=== PATIENT | male | born 1945 | race Caucasian/White ===

== ENCOUNTER 2022-07-29 12:31 | Outpatient (CLI) | payer MEDICARE, SELFPAY ==
--- OUTSIDE RECORDS SUMMARY | 2022-07-29 12:34 | XMS_ITS | Continuity of Care Document ---
:1945 Author Organization [facility] Address [address] [place] [address] Care Team Providers Name Role Phone Arun Justin Primary Care Physician Encounter [facility] Date(s): 06/06/22 - 06/06/22 [facility] [address] [place] [address] Encounter Diagnosis Lung mass (Discharge Diagnosis) - 06/06/22 Pneumonia (Discharge Diagnosis) - 06/06/22 Discharge Disposition: Home or Self Care Attending Physician: Ryley Mckeon MD Admitting Physician: Ryley Mckeon MD Allergies, Adverse Reactions, Alerts Substance Reaction Severity Status ANIMAL DANDER1 Unknown Active HOUSE DUST Unknown Active metFORMIN Abdominal pain Unknown Active 1Cats Assessment and Plan Future Appointments Functional Status 06/06/22 Other exposure to Infectious Disease None Immunizations Given and Recorded Vaccine Date Status Refusal Reason influenza virus vaccine, inactivated1 05/14/22 Recorded influenza virus vaccine, inactivated 05/28/17 Recorded influenza virus vaccine, inactivated 06/06/15 Recorded influenza virus vaccine, inactivated 05/11/13 Recorded influenza virus vaccine, inactivated 05/21/12 Recorded influenza virus vaccine, inactivated 04/29/11 Recorded influenza virus vaccine, inactivated 05/23/10 Recorded influenza virus vaccine, inactivated 08/02/09 Recorded influenza virus vaccine, inactivated 06/23/08 Recorded influenza virus vaccine, inactivated 06/17/07 Recorded influenza virus vaccine, inactivated 06/04/06 Recorded SARS-CoV-2 (COVID-19) mRNA-1273 vaccine 06/11/21 Recorded SARS-CoV-2 (COVID-19) mRNA-1273 vaccine 11/09/20 Recorded SARS-CoV-2 (COVID-19) mRNA-1273 vaccine 10/13/20 Recorded influenza, unspecified formulation 05/15/21 Recorded influenza, unspecified formulation 04/26/20 Recorded influenza, unspecified formulation 04/30/19 Recorded influenza, unspecified formulation 05/31/18 Recorded influenza, unspecified formulation 05/15/16 Recorded zoster vaccine, inactivated 07/26/20 Recorded zoster vaccine, inactivated 04/26/20 Recorded pneumococcal 23-polyvalent vaccine 12/23/16 Recorded pneumococcal 23-polyvalent vaccine 09/01/06 Recorded tetanus/diphth/pertuss (Tdap) adult/adol 12/23/16 Recorde d tetanus/diphth/pertuss (Tdap) adult/adol 09/01/06 Recorde d pneumococcal 13-valent conjugate vaccine 06/25/15 Recorde d Novel [id number], all formulation 08/22/09 Recorde d zoster vaccine live 01/18/08 Recorded tetanus-diphth toxoids (Td) adult/adol 08/17/96 Recorded 1Result Comment: [facility] Medications !-Levaquin 500 mg oral tablet 500 mg = 1 tab, Oral, every 24 hr, # 7 tab, 0 Refill(s), Pharmacy: [id number], 170.81, cm, 06/06/22 14:45:00 EDT, Height/Length Dosing, 84.37, kg, 06/06/22 14:45:00 EDT, Weight Dosing Start Date: 06/06/22 Stop Date: 06/13/22 Status: Orderedazithromycin 250 mg oral tablet See Instructions, take 2 tabs on day 1 and 1 tabs on day 2-5, # 1 EA, 0 Refill(s), [facility]acy: [id number] Start Date: 05/20/22 Status: Orderedbenazepril 10 mg oral tablet 1 tab, OG Tube, Daily, 0 Refill(s) Start Date: 01/21/22 Status: Orderedblood glucose monitor Supply, See instructions, # 1 EA, 0 Refill(s) Start Date: 01/21/22 Status: OrderedDelica Lancets Start Date: 01/21/22 Status: Orderedfluticasone-vilanterol 100 mcg-25 mcg/inh inhalation powder 1 puffs, Inhale, Daily, 0 Refill(s) Start Date: 01/21/22 Status: OrderedglipiZIDE 5 mg oral tablet See Instructions, Take 2 tablets by mouth once daily, # 180 tab, 3 Refill(s), Pharmacy: [id number] Start Date: 02/18/22 Status: Orderedmetoprolol succinate 50 mg oral tablet, extended release 1 tab, Oral, Daily, 0 Refill(s) Start Date: 01/21/22 Status: OrderedOne Touch Ultra Test Strips Supply, See instructions, # 1 EA, 0 Refill(s) Start Date: 01/21/22 Status: OrderedRybelsus 3 mg oral tablet 3 mg = 1 tab, Oral, Daily, take at least 30 minutes before first food, beverage, or other oral meds,# 30 tab, 0 Refill(s), Pharmacy: [id number] Start Date: 01/21/22 Status: Orderedsimvastatin 40 mg oral tablet 1 tab, Oral, Daily, 0 Refill(s) Start Date: 01/21/22 Status: OrderedSingulair 10 mg oral tablet 10 mg = 1 tab, Oral, Daily, # 30 tab, 0 Refill(s), Pharmacy: [facility] Start Date: 05/20/22 Status: Ordered Problem List Condition Confirmation Course Effective Dates Status Health I nformant Status Active immunization Confirmed Active Adult health Confirmed Active examination Allergic rhinitis Confirmed Active Backache Confirmed Active Benign prostatic Confirmed Active hyperplasia Chronic cholecystitis Confirmed Active Chronic obstructive Confirmed Active lung disease Impotence Confirmed Active Essential hypertension Confirmed 09/23/18 Active Gastric ulcer Confirmed Active Gastroesophageal Confirmed Active reflux disease 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 Hyperlipidemia Confirmed Active Insomnia Confirmed Active Lower urinary tract Confirmed Active symptoms 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 Active asthma Obesity Confirmed Active Prostate nodule Confirmed Active Retention of urine Confirmed Active Type 2 diabetes Confirmed Active mellitus without complication Type II diabetes Confirmed Active mellitus uncontrolled Urinary tract Confirmed Active obstruction Procedures Procedure Date Related Diagnosis Body Site Status Cholecystectomy1 10/25/12 Completed Colonoscopy 09/05/12 Completed Prostate bio[sy, any mthd 01/30/09 Co mpleted Prostatectomy 01/30/09 Completed Cardiac catheterization 05/07/06 Comp leted Biopsy of prostate 07/02/05 Completed Hernia repair 08/16/88 Completed Extraction of cataract (procedure) Completed 1Laparoscopic Cholecystectomy Results Laboratory List Name Date Hemoglobin A1c 06/06/22 Urinalysis Microscopic 06/06/22 Urinalysis with Micro if Indicated and Culture if Shelley cated 06/06/22 CBC w/ Diff 06/06/22 Comprehensive Metabolic Panel 06/06/22 D-Dimer 06/06/22 NT- Pro BNP 06/06/22 Troponin-I 06/06/22 SARS-CoV-2 (COVID-19)/Flu/RSV (GeneXpert) 06/06/22 Automated Diff 06/06/22 Most recent to oldest [Reference Range]: 1 WBC [5.0-10.0 x10^3/mcL] 13.6 x10^3/mcL *HI* (06/06/22 3:24 PM) RBC [4.6-6.0 x10^6/mcL] 4.2 x10^6/mcL *LOW* (06/06/22 3:24 PM) Neutro Auto [40.0-75.0 %] 79.8 % *HI* (06/06/22 3:24 PM) Lymph Auto [20.0-50.0 %] 10.3 % *LOW* (06/06/22 3:24 PM) [place] Auto [2.0-15.0 %] 8.8 % (06/06/22 3:24 PM) Basophil Auto [0.0-1.0 %] 0.3 % (06/06/22 3:24 PM) BUN [7-18 mg/dL] 19 mg/dL *HI* (06/06/22 3:24 PM) UA Color Yellow (06/06/22 3:43 PM) UA WBC [0-3] 0-3 (06/06/22 3:43 PM) Glucose Level [74-106 mg/dL] 117 mg/dL *HI* (06/06/22 3:24 PM) Potassium Level [3.5-5.1 mmol/L] 4.4 mmol/L (06/06/22 3:24 PM) MCV [80.0-103.0 fL] 90.4 fL (06/06/22 3:24 PM) UA Urobilinogen Normal (06/06/22 3:43 PM) UA Hyal Cast Rare /HPF (06/06/22 3:43 PM) UA Bili [Negative] Negative (06/06/22 3:43 PM) UA Ketones Negative (06/06/22 3:43 PM) AST [15-37 unit/L] 12 unit/L *LOW* (06/06/22 3:24 PM) ALT [14-59 unit/L] 20 unit/L (06/06/22 3:24 PM) MCHC [31.0-35.0 g/dL] 33.1 g/dL (06/06/22 3:24 PM) Troponin-I [0.0-76.2 pg/mL] 6.0 pg/mL (06/06/22 3:24 PM) Sodium Level [136-145 mmol/L] 134 mmol/L *LOW* (06/06/22 3:24 PM) UA RBC [0-2] 0-2 (06/06/22 3:43 PM) UA Leuk Est Negative (06/06/22 3:43 PM) UA Nitrite Negative (06/06/22 3:43 PM) UA Glucose [Negative] Negative (06/06/22 3:43 PM) Hct [41.0-51.0 %] 37.8 % *LOW* (06/06/22 3:24 PM) UA Bacteria Rare /HPF (06/06/22 3:43 PM) Calcium Level [8.5-10.1 mg/dL] 8.9 mg/dL (06/06/22 3:24 PM) Albumin Level [3.4-5.0 g/dL] 2.9 g/dL *LOW* (06/06/22 3:24 PM) Protein Total [6.4-8.2 g/dL] 7.3 g/dL (06/06/22 3:24 PM) UA Protein Trace *ABN* (06/06/22 3:43 PM) MCH [26.0-32.0 pg] 29.9 pg (06/06/22 3:24 PM) Neutro Absolute 10.8 x10^3/mcL *NA* (06/06/22 3:24 PM) Bilirubin Total [0.2-1.0 mg/dL] 0.5 mg/dL (06/06/22 3:24 PM) Hgb [14.0-18.0 g/dL] 12.5 g/dL *LOW* (06/06/22 3:24 PM) Alk Phos [46-146 unit/L] 60 unit/L (06/06/22 3:24 PM) UA Blood Negative (06/06/22 3:43 PM) UA Mucous Few /HPF *ABN* (06/06/22 3:43 PM) UA Spec Grav 1.025 *NA* (06/06/22 3:43 PM) Platelets [130-450 x10^3/mcL] 213 x10^3/mcL (06/06/22 3:24 PM) CO2 [21-32 mmol/L] 27 mmol/L (06/06/22 3:24 PM) UA Squam Epithelial [None Seen] Rare (06/06/22 3:43 PM) UA pH 6.0 *NA* (06/06/22 3:43 PM) eGFR Non-AA [>=60] 40 *LOW* (06/06/22 3:24 PM) eGFR AA [>=60] 40 *LOW* (06/06/22 3:24 PM) UA Appear Clear (06/06/22 3:43 PM) Hemoglobin A1c [4.0-6.0 %] 6.7 % *HI* (06/06/22 3:43 PM) NT-proBNP [0-450 pg/mL] 274 pg/mL (06/06/22 3:24 PM) Chloride Level [98-107 mmol/L] 100 mmol/L (06/06/22 3:24 PM) RDW-CV [11.5-17.0 %] 12.6 % (06/06/22 3:24 PM) Imm Gran Auto [0.0-0.9 %] 0.4 % (06/06/22 3:24 PM) UA Culture Ind?. Not Indicated 1 (06/06/22 3:43 PM) Creatinine Level [0.70-1.30 mg/dL] 1.73 mg/dL *HI* (06/06/22 3:24 PM) Employed in healthcare? Unknown *NA* (06/06/22 3:20 PM) Symptomatic as defined by CDC? Unknown *NA* (06/06/22 3:20 PM) Hospitalized due to COVID-19? Unknown *NA* (06/06/22 3:20 PM) In ICU? Unknown *NA* (06/06/22 3:20 PM) Group care resident? Unknown *NA* (06/06/22 3:20 PM) status? Unknown *NA* (06/06/22 3:20 PM) SARS-CoV-2(Covid19)PCR(GXpert COVFLURSV) [Negative] Ne gative (06/06/22 3:20 PM) Flu A (GXpert COVFLURSV) [Negative] Negative (06/06/22 3:20 PM) RSV (GXpert COVFLURSV) [Negative] Negative (06/06/22 3:20 PM) Flu B (GXpert COVFLURSV) [Negative] Negative (06/06/22 3:20 PM) D Dimer, (Quant.) [0.00-0.50 mg/L] 0.90 mg/L *HI* (06/06/22 3:24 PM) Eos, Auto [1.0-6.0 %] 0.4 % *LOW* (06/06/22 3:24 PM) 1Result Comment: Urine Culture not Needed Vital Signs Most recent to oldest 1 2 3 [Reference Range]: Temperature Temporal Artery 36.0 Deg C [36-38 Deg C] (06/06/22 2:39 PM) Temperature Temporal Artery 96.8 Deg F (DegF) [97.3-100 Deg F] *LOW* (06/06/22 2:39 PM) Peripheral Pulse Rate 85 bpm 84 bpm 84 bpm [60-100 bpm] (06/06/22 3:44 PM) (06/06/22 3:20 PM) (06/06/22 3:13 PM) Heart Rate Monitored [60-100 86 bpm 87 bpm 82 bpm bpm] (06/06/22 5:06 PM) (06/06/22 3:44 PM) (06/06/22 3:20 PM) Respiratory Rate [12-24 22 br/min 20 br/min 13 br/mi n br/min] (06/06/22 3:44 PM) (06/06/22 3:20 PM) (06/06/22 3:13 PM) Blood Pressure [90-140/60-90 131/73 mmHg 120/71 mmHg 115 /65 mmHg mmHg] (06/06/22 3:44 PM) (06/06/22 3:20 PM) (06/06/22 2:39 PM) Weight 84.37 kg (06/06/22 2:39 PM) Weight Dosing 84.37 kg (06/06/22 2:45 PM) Height 170.810 cm (06/06/22 2:39 PM) Height/Length Dosing 170.810 cm (06/06/22 2:45 PM) Social History Social History Type Response Smoking Status Smoking tobacco use: Former tobacco user; Never; Number used per day: 1-2 PPD; Number of years: 30; 1 entered on: 01/15/22 Sex Male 1Quit 1993 Hospital Discharge Instructions Patient Qfvlkrzdz17/21/2022 16:32:12Community-Acquired Pneumonia, Adult, Hiuj-pb-NtymKhedmqfqe-Acquired Pneumonia, Adult Pneumonia is an infection of the lungs. It causes irritation and swelling in the airways of the lungs. Mucus and fluid may also build up inside the airways. This may cause coughing and trouble breathing. One type of pneumonia can happen while you are in a hospital. A different type can happen when you are not in a hospital (community-acquired pneumonia). What are the causes? This condition is caused by germs (viruses, bacteria, or fungi). Some types of germs can spread fromperson to person. Pneumonia is not thought to spread from person to person. What increases the risk? You are more likely to develop this condition if: ??? You have a long-term (chronic) disease, such as: ??? Disease of the lungs. This may be chronic obstructive pulmonary disease (COPD) or asthma. ??? Heart failure. ??? Cystic fibrosis. ??? Diabetes. ??? Kidney disease. ??? Sickle cell disease. ??? HIV. ??? You have other health problems, such as: ??? Your body's defense system (immune system) is weak. ??? A condition that may cause you to breathe in fluids from your mouth and nose. ??? You had your spleen taken out. ??? You do not take good care of your teeth and mouth (poor dental hygiene). ??? You use or have used tobacco products. ??? You travel where the germs that cause this illness are common. ??? You are near certain animals or the places they live. ??? You are older than 65 years of age. What are the signs or symptoms? Symptoms of this condition include: ??? A cough. ??? A fever. ??? Sweating or chills. ??? Chest pain, often when you breathe deeply or cough. ??? Breathing problems, such as: ??? Fast breathing. ??? Trouble breathing. ??? Shortness of breath. ??? Feeling tired (fatigued). ??? Muscle aches. How is this treated? Treatment for this condition depends on many things, such as: ??? The cause of your illness. ??? Your medicines. ??? Your other health problems. Most adults can be treated at home. Sometimes, treatment must happen in a hospital. ??? Treatment may include medicines to kill germs. ??? Medicines may depend on which germ caused your illness. Very bad pneumonia is rare. If you get it, you may: ??? Have a machine to help you breathe. ??? Have fluid taken away from around your lungs. Follow these instructions at home: Medicines ??? Take gbsg-aax-cdzpxlt and prescription medicines only as told by your doctor. ??? Take cough medicine only if you are losing sleep. Cough medicine can keep your body from taking mucus away from your lungs. ??? If you were prescribed an antibiotic medicine, take it as told by your doctor. Do not stop taking the antibiotic even if you start to feel better. Lifestyle ??? Do not drink alcohol. ??? Do not use any products that contain nicotine or tobacco, such as cigarettes, e-cigarettes, and chewing tobacco. If you need help quitting, ask your doctor. ??? Eat a healthy diet. This includes a lot of vegetables, fruits, whole grains, low-fat dairy products, and low-fat (lean) protein. General instructions ??? Rest a lot. Sleep for at least 8 hours each night. ??? Sleep with your head and neck raised. Put a few pillows under your head or sleep in a reclining chair. ??? Return to your normal activities as told by your doctor. Ask your doctor what activities are safe for you. ??? Drink enough fluid to keep your pee (urine) pale yellow. ??? If your throat is sore, rinse your mouth often with salt water. To make salt water, dissolve ?1 tsp (3???6 g) of salt in 1 cup (237 mL) of warm water. ??? Keep all follow-up visits as told by your doctor. This is important. How is this prevented? You can lower your risk of pneumonia by: ??? Getting the pneumonia shot (vaccine). These shots have different types and schedules. Ask your doctor what works best for you. Think about getting this shot if: ??? You are older than 65 years of age. ??? You are 19???65 years of age and: ??? You are being treated for cancer. ??? You have long-term lung disease. ??? You have other problems that affect your body's defense system. Ask your doctor if you have one of these. ??? Getting your flu shot every year. Ask your doctor which type of shot is best for you. ??? Going to the dentist as often as told. ??? Washing your hands often with soap and water for at least 20 seconds. If you cannot use soap andwater, use hand senior sales manager. Contact a doctor if: ??? You have a fever. ??? You lose sleep because your cough medicine does not help. Get help right away if: ??? You are short of breath and this gets worse. ??? You have more chest pain. ??? Your sickness gets worse. This is very serious if: ??? You are an older adult. ??? Your body's defense system is weak. ??? You cough up blood. These symptoms may be an emergency. Do not wait to see if the symptoms will go away. Get medical help right away. Call your local emergency services (911 in the [place] Do not drive yourself to the hospital. Summary ??? Pneumonia is an infection of the lungs. ??? Community-acquired pneumonia affects people who have not been in the hospital. Certain germs cancause this infection. ??? This condition may be treated with medicines that kill germs. ??? For very bad pneumonia, you may need a hospital stay and treatment to help with breathing. This information is not intended to replace advice given to you by your health care provider. Make sure you discuss any questions you have with your health care provider. Document Revised: 05/15/2020 Document Reviewed: 05/15/2020 [employer] Patient Education ?? 2021 [employer]. 06/06/2022 16:32:08Lung MassLung Mass A lung mass is a growth in the lung that is larger than 1.2 inches (3 cm). Smaller growths are called nodules. Most lung, or pulmonary, nodules are not cancer. Lung masses have a higher risk of being cancer than nodules do. A lung mass is sometimes found during a routine chest X-ray or while other imaging tests are done to check for other problems. Lung masses include: ??? Tumors. These may be cancerous (malignant) or noncancerous (benign). ??? Granulomas. These are infectious masses. They are caused by inflammation from bacterial infections, such as tuberculosis, or from fungal infections. ??? Noninfectious masses. Some diseases that cause lung inflammation may also cause lung masses to form. ??? Blood vessel malformations. What are the causes? This condition may be caused by: ??? A bacterial, fungal, or viral infection, such as tuberculosis. The infection is usually an old and inactive one. ??? Cancerous tissue, such as lung cancer or a cancer in another part of the body that has spread tothe lung. ??? A noncancerous mass of tissue. ??? Inflammation from conditions such as rheumatoid arthritis. ??? Abnormal blood vessels in the lungs. What are the signs or symptoms? Usually, there are no symptoms of this condition. If symptoms appear, they are usually related to the underlying cause or due to pressure on surrounding tissue. For example, if the condition is caused by an infection, you may have a cough or a fever. How is this diagnosed? This condition may be diagnosed based on testing to find the cause of the mass. If a lung mass is found, you may have: ??? A physical exam. ??? Blood tests. ??? Imaging tests. These may include: ??? Chest X-rays. ??? CT scan. This test shows smaller pulmonary nodules more clearly and with more detail than an X-ray. ??? Positron emission tomography (PET) scan. This test is done to check if a nodule or mass is cancerous. During the test, a small amount of a radioactive substance is injected into the bloodstream. Then a picture is taken. ??? Biopsy to evaluate for cancer or confirm a diagnosis. This procedure involves removing a tissue sample from the mass by: ??? Inserting a needle through the chest. ??? Using a scope placed down into the lung. ??? Doing open surgery. Tests and physical exams may be done once, or they may be done regularly for a period of time. Testsand exams that are done regularly will help monitor whether the mass is growing and becoming a concern. How is this treated? Treatment for a lung mass depends on the cause and whether the mass is cancerous. Treatment options for a cancerous lung mass may include: ??? Surgical removal. ??? Radiation therapy. This therapy uses high-energy X-rays to kill cancer cells. ??? Chemotherapy. This therapy uses medicines to slow down or stop the growth of cancer. ??? Targeted therapy, if the mass is cancerous. In this therapy, medicines are used that directly fight cancer cells and do not harm normal cells. ??? Immunotherapy, if the mass is cancerous. This therapy uses medicines that help your disease-fighting system (immune system) fight cancer cells. Noncancerous masses may require treatment specific to the cause. Follow these instructions at home: If you have had surgery or a biopsy, your health care provider will give you specific instructions for taking care of yourself at home after your procedure. Follow these instructions carefully. [place] care instructions include: ??? Take majt-ctk-kxkyhyx and prescription medicines only as told by your health care provider. ??? Return to your normal activities as told by your health care provider. Ask your health care provider what activities are safe for you. ??? Do not use any products that contain nicotine or tobacco. These products include cigarettes, chewing tobacco, and vaping devices, such as e-cigarettes. If you need help quitting, ask your health care provider. ??? Keep all follow-up visits. This is important. Contact a health care provider if: ??? You have pain in your chest, back, or shoulder. ??? You are short of breath or have trouble breathing when you are active. ??? You develop a cough, or you develop hoarseness for an unexplained reason. ??? You feel sick or unusually tired. ??? You do not feel like eating, or you lose weight without trying. ??? You get chills or night sweats. ??? You need two or more pillows to sleep on at night. ??? You have any of these problems: ??? A fever and symptoms that suddenly get worse. ??? A fever or persistent symptoms for more than 2???3 days. Get help right away if: ??? You cannot catch your breath. ??? You have sudden chest pain. ??? You start making high-pitched whistling sounds when you breathe, most often when you breathe out(you wheeze). ??? You cannot stop coughing, or you cough up blood or bloody mucus from your lungs (sputum). ??? You become dizzy or feel like you may faint. These symptoms may represent a serious problem that is an emergency. Do not wait to see if the symptoms will go away. Get medical help right away. Call your local emergency services (911 in the [place] Do not drive yourself to the hospital. Summary ??? A lung mass is a growth in the lung that is larger than 1.2 inches (3 cm). ??? Lung masses have a higher risk of being cancer than do smaller growths. ??? Sometimes a lung mass is found during a routine chest X-ray or other imaging test. ??? Your health care provider may remove a tissue sample of the lung mass for testing (do a biopsy) to rule out or confirm cancer. ??? Treatment for this condition depends on the cause. This information is not intended to replace advice given to you by your health care provider. Make sure you discuss any questions you have with your health care provider. Document Revised: 02/20/2021 Document Reviewed: 02/20/2021 [employer] Patient Education ?? 2021 [employer] Follow Up Care06/06/2022 14:39:14With:Arun Justin MD Address: [facility] [address] [address]- [facility] information PersonnelName: Arun Justin MD Address: Address: [id number] [place] [address]
--- OUTSIDE RECORDS SUMMARY | 2022-07-29 12:34 | XMS_ITS | Continuity of Care Document ---
:1945 Author Organization [facility] Address [address] [place] [address] Care Team Providers Name Role Phone Arun Justin Primary Care Physician Encounter [facility] Date(s): 07/18/22 - 07/18/22 [facility] [address] [place] [address] Discharge Disposition: Home or Self Care Attending Physician: Rosendo Velasco MD Admitting Physician: Rosendo Velasco MD Referring Physician: Rosendo Velasco MD Allergies, Adverse Reactions, Alerts Substance Reaction Severity Status ANIMAL DANDER1 Unknown Active HOUSE DUST Unknown Active metFORMIN Abdominal pain Unknown Active 1Cats Assessment and Plan Future Appointments Immunizations Given and Recorded Vaccine Date Status [...] 13-valent conjugate vaccine 06/25/15 Recorde d Novel [id number], all formulation 08/22/09 Recorde d zoster vaccine live 01/18/08 Recorded tetanus-diphth toxoids (Td) adult/adol 08/17/96 Recorded 1Result Comment: [facility] Medications !-Levaquin 500 mg oral tablet 500 mg = 1 tab, Oral, every 24 hr, # 7 tab, 0 Refill(s), Pharmacy: [id number], 170.81, cm, 06/06/22 14:45:00 EDT, Height/Length Dosing, 84.37, kg, 06/06/22 14:45:00 EDT, Weight Dosing Start Date: 06/06/22 Stop Date: 06/13/22 Status: Orderedbenazepril 10 mg oral tablet 1 tab, OG Tube, Daily, 0 Refill(s) Start Date: 01/21/22 Status: Orderedblood glucose monitor Supply, See instructions, # 1 EA, 0 Refill(s) Start Date: 01/21/22 Status: OrderedDelica Lancets Start Date: 01/21/22 Status: Orderedfluticasone-vilanterol 100 mcg-25 mcg/inh inhalation powder 2 puffs, Inhale, Daily, DOSE INCREASE FROM 1 PUFF to 2 PUFFS, # 120 EA, 6 Refill(s), Pharmacy: [id number], 170.81, cm, 06/06/22 14:45:00 EDT, Height/Length Dosing, 84.37, kg, 06/06/22 14:45:00 EDT, Weight Dosing Start Date: 06/24/22 Status: OrderedglipiZIDE 5 mg oral tablet See Instructions, Take 2 tablets by mouth once daily, # 180 tab, 3 Refill(s), Pharmacy: [id number] Start Date: 02/18/22 Status: Orderedipratropium-albuterol 0.5 mg-2.5 mg/3 mL inhalation solution 3 mL, NEB, QID, # 100 EA, 1 Refill(s), Pharmacy: [facility]156, 170.81, cm, 06/06/22 14:45:00 EDT, Height/Length Dosing, 84.37, kg, 06/06/22 14:45:00 EDT, Weight Dosing Start Date: 06/25/22 Status: Orderedmetoprolol succinate 50 mg oral tablet, extended release 1 tab, Oral, Daily, 0 Refill(s) Start Date: 01/21/22 Status: OrderedOne Touch Ultra Test Strips Supply, See instructions, # 1 EA, 0 Refill(s) Start Date: 01/21/22 Status: Orderedsimvastatin 40 mg oral tablet See Instructions, Take 1 tablet by mouth once daily, # 90 tab, 3 Refill(s), Pharmacy: [facility]156, 170.81, cm, 06/06/22 14:45:00 EDT, Height/Length Dosing, 84.37, kg, 06/06/22 14:45:00 EDT, Weight Dosing Start Date: 06/30/22 Status: Ordered Problem List Condition Confirmation Course [...] catheterization 05/07/06 Comp leted Biopsy of prostate 11/16/05 Completed Hernia repair 08/16/88 Completed Extraction of cataract (procedure) Completed 1Laparoscopic Cholecystectomy Social History Social History Type Response Smoking Status Smoking tobacco use: Former tobacco user; Never; Number used per day: 1-2 PPD; Number of years: 30; 1 entered on: 01/15/22 Sex Male 1Quit 1993 Patient Care team information PersonnelName: Arun Justin MD Address: Address: [address]
--- OUTSIDE RECORDS SUMMARY | 2022-07-29 12:34 | XMS_ITS | Continuity of Care Document ---
:1945 Author Organization [facility] Address [address] [place] [address] Care Team Providers Name Role Phone Arun Justin Primary Care Physician Encounter [facility] Date(s): 07/28/22 - 07/28/22 [facility] [address] [place] [address] Discharge Disposition: Home or Self Care Attending Physician: Rosendo Velasco MD Admitting Physician: Rosendo Velasco MD Referring Physician: Rosendo Velasco MD Allergies, Adverse Reactions, Alerts Substance Reaction Severity Status ANIMAL DANDER1 Unknown Active HOUSE DUST Unknown Active metFORMIN Abdominal pain Unknown Active 1Cats Assessment and Plan Future AppointmentsFuture Scheduled TestsRadiologyCT Chest High Resolution w/ Contrast 07/24/22 Immunizations Given and Recorded Vaccine Date Status [...] 13-valent conjugate vaccine 06/25/15 Recorde d Novel [id number], all formulation 08/22/09 Recorde d zoster vaccine live 01/18/08 Recorded tetanus-diphth toxoids (Td) adult/adol 08/17/96 Recorded 1Result Comment: [facility] Medications !-Levaquin 500 mg oral tablet 500 mg = 1 tab, Oral, every 24 hr, # 7 tab, 0 Refill(s), Pharmacy: [facility] [id number], 170.81, cm, 06/06/22 14:45:00 [...] PUFFS, # 120 EA, 6 Refill(s), Pharmacy: [facility] [id number], 170.81, cm, 06/06/22 14:45:00 EDT, Height/Length Dosing, 84.37, kg, 06/06/22 14:45:00 EDT, Weight Dosing Start Date: 06/24/22 Status: OrderedglipiZIDE 5 mg oral tablet See Instructions, Take 2 tablets by mouth once daily, # 180 tab, 3 Refill(s), Pharmacy: [facility] Start Date: 02/18/22 Status: Orderedipratropium-albuterol 0.5 mg-2.5 mg/3 mL inhalation solution 3 mL, NEB, QID, # 100 EA, 1 Refill(s), Pharmacy: [facility]156, 170.81, cm, 06/06/22 14:45:00 [...] daily, # 90 tab, 3 Refill(s), Pharmacy: [facility] 4156, 170.81, cm, 06/06/22 14:45:00 [...] Active Lower urinary tract Confirmed Active symptoms Lung cancer Confirmed Active 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 Active asthma Obesity Confirmed Active Prostate nodule Confirmed Active Retention of urine Confirmed Active Type 2 diabetes Confirmed Active mellitus without complication Type II diabetes Confirmed Active mellitus uncontrolled Urinary tract Confirmed Active obstruction Procedures Procedure Date Related Diagnosis Body Site Status Biopsy1 06/23/22 Completed Cholecystectomy2 10/25/12 Completed Colonoscopy 09/05/12 Completed Prostate bio[sy, any mthd 01/30/09 Co mpleted Prostatectomy 01/30/09 Completed Cardiac catheterization 05/07/06 Comp leted Biopsy of prostate 07/02/05 Completed Hernia repair 08/16/88 Completed Extraction of cataract (procedure) Completed 1lung [id number] Cholecystectomy Social History Social History Type Response Smoking Status Smoking tobacco use: Former tobacco user; Never; Number used per day: 1-2 PPD; Number of years: 30; 1 entered on: 01/15/22 Sex Male 1Quit 1993 Patient Care team information PersonnelName: Arun Justin MD Address: Address: [address] [address]- [place]
--- OUTSIDE RECORDS SUMMARY | 2022-07-29 12:34 | XMS_ITS | Continuity of Care Document ---
:1945 Author Organization [facility] Address [address] [place] [address] Care Team Providers Name Role Phone Arun Justin Primary Care Physician Encounter [facility] Date(s): 07/28/22 - 07/28/22 [facility] [address] [place] [address] Discharge Disposition: Home or Self Care Attending [...] 13-valent conjugate vaccine 06/25/15 Recorde d Novel [id number], all formulation 08/22/09 Recorde d zoster vaccine live 01/18/08 Recorded tetanus-diphth toxoids (Td) adult/adol 08/17/96 Recorded 1Result Comment: [facility] Medications !-Levaquin 500 mg oral tablet 500 mg = 1 tab, Oral, every 24 hr, # 7 tab, 0 Refill(s), Pharmacy: [facility] 4156, 170.81, cm, 06/06/22 14:45:00 [...] PUFFS, # 120 EA, 6 Refill(s), Pharmacy: [facility] 4156, 170.81, cm, 06/06/22 14:45:00 EDT, Height/Length Dosing, 84.37, kg, 06/06/22 14:45:00 EDT, Weight Dosing Start Date: 06/24/22 Status: OrderedglipiZIDE 5 mg oral tablet See Instructions, Take 2 tablets by mouth once daily, # 180 tab, 3 Refill(s), Pharmacy: [facility] Start Date: 02/18/22 Status: Orderedipratropium-albuterol 0.5 mg-2.5 mg/3 mL inhalation solution 3 mL, NEB, QID, # 100 EA, 1 Refill(s), Pharmacy: [facility] 4156, 170.81, cm, 06/06/22 14:45:00 [...] daily, # 90 tab, 3 Refill(s), Pharmacy: [facility] 4156, 170.81, cm, 06/06/22 14:45:00 [...] Completed Extraction of cataract (procedure) Completed 1lung [id number] Cholecystectomy Results Laboratory List Name Date Comprehensive Metabolic Panel 07/28/22 Most recent to oldest [Reference Range]: 1 BUN [7-18 mg/dL] 17 mg/dL (07/28/22 12:10 PM) Glucose Level [74-106 mg/dL] 169 mg/dL *HI* (07/28/22 12:10 PM) Potassium Level [3.5-5.1 mmol/L] 3.9 mmol/L (07/28/22 12:10 PM) AST [15-37 unit/L] 13 unit/L *LOW* (07/28/22 12:10 PM) ALT [16-63 unit/L] 16 unit/L (07/28/22 12:10 PM) Sodium Level [136-145 mmol/L] 136 mmol/L (07/28/22 12:10 PM) Calcium Level [8.5-10.1 mg/dL] 9.2 mg/dL (07/28/22 12:10 PM) Albumin Level [3.4-5.0 g/dL] 3.1 g/dL *LOW* (07/28/22 12:10 PM) Protein Total [6.4-8.2 g/dL] 7.4 g/dL (07/28/22 12:10 PM) Bilirubin Total [0.2-1.0 mg/dL] 0.4 mg/dL (07/28/22 12:10 PM) Alk Phos [46-146 unit/L] 85 unit/L (07/28/22 12:10 PM) CO2 [21-32 mmol/L] 30 mmol/L (07/28/22 12:10 PM) eGFR Non-AA [>=60] 47 *LOW* (07/28/22 12:10 PM) eGFR AA [>=60] 47 *LOW* (07/28/22 12:10 PM) Chloride Level [98-107 mmol/L] 101 mmol/L (07/28/22 12:10 PM) Creatinine Level [0.70-1.30 mg/dL] 1.53 mg/dL *HI* (07/28/22 12:10 PM) Social History Social History Type Response Smoking Status Smoking tobacco use: Former tobacco user; Never; Number used per day: 1-2 PPD; Number of years: 30; 1 entered on: 01/15/22 Sex Male 1Quit 1993 Patient Care team information PersonnelName: Arun Justin MD Address: Address: [address]
[2022-07-29 12:51] LABS: Abs Immature Grans 0.05 10^3/uL (0.0-0.06); Absolute Basophil Count 0.06 10^3/uL (0.0-0.2); Absolute Eosinophil Count 0.12 10^3/uL (0.0-0.7); Absolute Lymphocyte Count 1.72 10^3/uL (1.2-3.4); Absolute Monocyte Count 0.87 10^3/uL (0.1-0.8); Basophils % 0.5; HCT 37.5 % (40.0-50.0); HGB 12.2 g/dL (13.5-17.5); Immature Grans % 0.4; Lymphocytes % 13.9; MCH 29.3 pg (27.0-33.0); MCHC 32.5 % (32.0-36.0); MCV 90 fL (80-95); MPV 10.8 fL (8.0-11.0); Neutrophils % 77.2; Platelet Count 216 10^3/uL (130-400); RBC 4.17 10^6/uL (4.36-5.78); RDW 13.3 % (11.8-14.1); RDW-SD 44.1 fL
[2022-07-29 13:09] LABS: Absolute Neutrophil Count 9.57 10^3/uL (1.2-6.7)
== END 2022-07-29 12:32 | disposition home or self-care (01) ==
LOC: LBO 12:33
PROVIDERS: PCP Family Medicine; Visit Provider Internal Medicine Medical Oncology
DX: C34.11 Malignant neoplasm of upper lobe, right bronchus or lung (principal)
CPT/HCPCS: 36415; 85025

== ENCOUNTER 2022-08-04 03:20 | Outpatient (CLI) | payer MEDICARE, SELFPAY ==
[2022-08-04 08:46] LABS: Abs Immature Grans 0.04 10^3/uL (0.0-0.06); Absolute Basophil Count 0.05 10^3/uL (0.0-0.2); Absolute Eosinophil Count 0.11 10^3/uL (0.0-0.7); Absolute Lymphocyte Count 1.32 10^3/uL (1.2-3.4); Basophils % 0.4; Eosinophils % 0.9; HGB 12.2 g/dL (13.5-17.5); Immature Grans % 0.3; Lymphocytes % 10.4; MCHC 32.1 % (32.0-36.0); MCV 91 fL (80-95); MPV 10.9 fL (8.0-11.0); Monocytes % 6.5; Neutrophils % 81.5; Platelet Count 212 10^3/uL (130-400); RDW 13.6 % (11.8-14.1); RDW-SD 45.5 fL; WBC 12.71 10^3/uL (4.4-10.8)
[2022-08-04 08:47] LABS: Absolute Monocyte Count 0.83 10^3/uL (0.1-0.8); Absolute Neutrophil Count 10.36 10^3/uL (1.2-6.7)
[2022-08-04 09:49] LABS: ALT 13 U/L (16-63); AST 14 U/L (15-37); Albumin 3.2 g/dL (3.4-5.0); Alkaline Phosphatase 88 U/L (46-116); Anion Gap 9.4 mmol/L (3-11); BUN 15 mg/dL (7-18); Bilirubin, Total 0.4 mg/dL (0.2-1.0); CO2 26.6 mmol/L (21.0-32.0); CREATININE 1.5 mg/dL (0.70-1.30); Calcium 8.3 mg/dL (8.5-10.1); Chloride 103 mmol/L (98-107); Estimated GFR 47.95 (mL/min/1.73m2); Glucose 223 mg/dL (74-106); Potassium 3.8 mmol/L (3.5-5.1); Sodium 139 mmol/L (136-145); Total Protein 6.7 g/dL (6.4-8.2)
== END 2022-08-04 03:21 | disposition home or self-care (01) ==
LOC: LBO 03:20
PROVIDERS: PCP Family Medicine; Visit Provider Internal Medicine Medical Oncology
DX: C34.11 Malignant neoplasm of upper lobe, right bronchus or lung (principal)
CPT/HCPCS: 36415; 80053; 85025

== ENCOUNTER 2022-08-12 03:36 | Outpatient (CLI) | payer MEDICARE, SELFPAY ==
[2022-08-12 07:36] LABS: Abs Immature Grans 0.17 10^3/uL (0.0-0.06); Absolute Lymphocyte Count 0.55 10^3/uL (1.2-3.4); Absolute Monocyte Count 0.71 10^3/uL (0.1-0.8); Absolute Neutrophil Count 13.69 10^3/uL (1.2-6.7); Basophils % 0.3; HCT 37.9 % (40.0-50.0); Immature Grans % 1.1; Lymphocytes % 3.6; MCH 28.9 pg (27.0-33.0); MCHC 31.7 % (32.0-36.0); MCV 91 fL (80-95); MPV 11.2 fL (8.0-11.0); Monocytes % 4.7; Neutrophils % 90.3; Platelet Count 192 10^3/uL (130-400); RBC 4.15 10^6/uL (4.36-5.78); RDW 13.6 % (11.8-14.1); RDW-SD 45.9 fL; WBC 15.16 10^3/uL (4.4-10.8)
[2022-08-12 07:45] LABS: Absolute Basophil Count 0.05 10^3/uL (0.0-0.2)
[2022-08-12 07:50] LABS: ALT 19 U/L (16-63); AST 9 U/L (15-37); Albumin 3.2 g/dL (3.4-5.0); Alkaline Phosphatase 96 U/L (46-116); Anion Gap 11.4 mmol/L (3-11); BUN 29 mg/dL (7-18); Bilirubin, Total 0.4 mg/dL (0.2-1.0); CO2 22.6 mmol/L (21.0-32.0); CREATININE 1.9 mg/dL (0.70-1.30); Calcium 9.3 mg/dL (8.5-10.1); Chloride 102 mmol/L (98-107); Estimated GFR 36.11 (mL/min/1.73m2); Glucose 409 mg/dL (74-106); Potassium 4.7 mmol/L (3.5-5.1); Sodium 136 mmol/L (136-145); Total Protein 7.1 g/dL (6.4-8.2)
== END 2022-08-12 03:37 | disposition home or self-care (01) ==
LOC: LBO 03:36
PROVIDERS: PCP Family Medicine; Visit Provider Internal Medicine Medical Oncology
DX: C34.11 Malignant neoplasm of upper lobe, right bronchus or lung (principal)
CPT/HCPCS: 36415; 80053; 85025

== ENCOUNTER 2022-08-19 03:41 | Outpatient (CLI) | payer MEDICARE, SELFPAY ==
[2022-08-19 12:06] LABS: Abs Immature Grans 0.04 10^3/uL (0.0-0.06); Absolute Basophil Count 0.01 10^3/uL (0.0-0.2); Absolute Eosinophil Count 0.07 10^3/uL (0.0-0.7); Absolute Lymphocyte Count 0.86 10^3/uL (1.2-3.4); Absolute Monocyte Count 0.67 10^3/uL (0.1-0.8); Absolute Neutrophil Count 6.89 10^3/uL (1.2-6.7); Basophils % 0.1; Eosinophils % 0.8; HCT 34.4 % (40.0-50.0); Immature Grans % 0.5; Lymphocytes % 10.1; MCH 29.3 pg (27.0-33.0); MCV 92 fL (80-95); MPV 10.8 fL (8.0-11.0); Monocytes % 7.8; Neutrophils % 80.7; Platelet Count 125 10^3/uL (130-400); RBC 3.75 10^6/uL (4.36-5.78); RDW 14.6 % (11.8-14.1); WBC 8.54 10^3/uL (4.4-10.8)
[2022-08-19 12:39] LABS: ALT 26 U/L (16-63); AST 16 U/L (15-37); Albumin 3.1 g/dL (3.4-5.0); Alkaline Phosphatase 82 U/L (46-116); Anion Gap 7.7 mmol/L (3-11); BUN 17 mg/dL (7-18); Bilirubin, Total 0.3 mg/dL (0.2-1.0); CO2 25.3 mmol/L (21.0-32.0); CREATININE 1.3 mg/dL (0.70-1.30); Calcium 8.3 mg/dL (8.5-10.1); Chloride 106 mmol/L (98-107); Estimated GFR 56.93 (mL/min/1.73m2); Glucose 150 mg/dL (74-106); Potassium 3.7 mmol/L (3.5-5.1); Sodium 139 mmol/L (136-145); Total Protein 6.9 g/dL (6.4-8.2)
== END 2022-08-19 03:42 | disposition home or self-care (01) ==
LOC: LBO 03:41
PROVIDERS: PCP Family Medicine; Visit Provider Internal Medicine Medical Oncology
DX: C34.11 Malignant neoplasm of upper lobe, right bronchus or lung (principal)
CPT/HCPCS: 36415; 80053; 85025

== ENCOUNTER 2022-08-25 03:13 | Outpatient (CLI) | payer MEDICARE, SELFPAY ==
[2022-08-25 11:10] LABS: Abs Immature Grans 0.04 10^3/uL (0.0-0.06); Absolute Basophil Count 0.01 10^3/uL (0.0-0.2); Absolute Eosinophil Count 0.03 10^3/uL (0.0-0.7); Absolute Lymphocyte Count 0.62 10^3/uL (1.2-3.4); Absolute Monocyte Count 0.64 10^3/uL (0.1-0.8); Absolute Neutrophil Count 8.02 10^3/uL (1.2-6.7); Basophils % 0.1; Eosinophils % 0.3; HCT 32.3 % (40.0-50.0); HGB 10.7 g/dL (13.5-17.5); Immature Grans % 0.4; Lymphocytes % 6.6; MCH 30.1 pg (27.0-33.0); MCHC 33.1 % (32.0-36.0); MCV 91 fL (80-95); MPV 10.5 fL (8.0-11.0); Monocytes % 6.8; Neutrophils % 85.8; Platelet Count 117 10^3/uL (130-400); RBC 3.56 10^6/uL (4.36-5.78); RDW 14.7 % (11.8-14.1); RDW-SD 47.2 fL; WBC 9.36 10^3/uL (4.4-10.8)
[2022-08-25 11:28] LABS: ALT 24 U/L (16-63); AST 13 U/L (15-37); Alkaline Phosphatase 85 U/L (46-116); Anion Gap 8.3 mmol/L (3-11); BUN 17 mg/dL (7-18); Bilirubin, Total 0.4 mg/dL (0.2-1.0); CO2 23.7 mmol/L (21.0-32.0); CREATININE 1.3 mg/dL (0.70-1.30); Calcium 8.5 mg/dL (8.5-10.1); Chloride 105 mmol/L (98-107); Estimated GFR 56.93 (mL/min/1.73m2); Glucose 192 mg/dL (74-106); Potassium 3.9 mmol/L (3.5-5.1); Sodium 137 mmol/L (136-145); Total Protein 6.5 g/dL (6.4-8.2)
== END 2022-08-25 03:14 | disposition home or self-care (01) ==
LOC: LBO 03:13
PROVIDERS: PCP Family Medicine; Visit Provider Internal Medicine Medical Oncology
DX: C34.11 Malignant neoplasm of upper lobe, right bronchus or lung (principal)
CPT/HCPCS: 36415; 80053; 85025

== ENCOUNTER 2022-09-01 02:53 | Outpatient (CLI) | payer MEDICARE, SELFPAY ==
[2022-09-01 11:12] LABS: Abs Immature Grans 0.02 10^3/uL (0.0-0.06); Absolute Basophil Count 0.02 10^3/uL (0.0-0.2); Absolute Eosinophil Count 0.04 10^3/uL (0.0-0.7); Absolute Lymphocyte Count 0.68 10^3/uL (1.2-3.4); Absolute Monocyte Count 0.54 10^3/uL (0.1-0.8); Absolute Neutrophil Count 4.76 10^3/uL (1.2-6.7); Basophils % 0.3; Eosinophils % 0.7; HCT 31.6 % (40.0-50.0); HGB 10.6 g/dL (13.5-17.5); Immature Grans % 0.3; Lymphocytes % 11.2; MCH 30.4 pg (27.0-33.0); MCHC 33.5 % (32.0-36.0); MCV 91 fL (80-95); MPV 10.2 fL (8.0-11.0); Monocytes % 8.9; Neutrophils % 78.6; Platelet Count 117 10^3/uL (130-400); RBC 3.49 10^6/uL (4.36-5.78); RDW 15.5 % (11.8-14.1); RDW-SD 48.7 fL; WBC 6.06 10^3/uL (4.4-10.8)
[2022-09-01 11:27] LABS: ALT 17 U/L (16-63); AST 11 U/L (15-37); Alkaline Phosphatase 89 U/L (46-116); Anion Gap 9.2 mmol/L (3-11); BUN 17 mg/dL (7-18); Bilirubin, Total 0.3 mg/dL (0.2-1.0); CO2 24.8 mmol/L (21.0-32.0); CREATININE 1.2 mg/dL (0.70-1.30); Calcium 8.5 mg/dL (8.5-10.1); Chloride 105 mmol/L (98-107); Estimated GFR 62.67 (mL/min/1.73m2); Glucose 224 mg/dL (74-106); Potassium 4.2 mmol/L (3.5-5.1); Sodium 139 mmol/L (136-145); Total Protein 6.5 g/dL (6.4-8.2)
== END 2022-09-01 02:54 | disposition home or self-care (01) ==
LOC: LBO 02:53
PROVIDERS: PCP Family Medicine; Visit Provider Internal Medicine Medical Oncology
DX: C34.11 Malignant neoplasm of upper lobe, right bronchus or lung (principal)
CPT/HCPCS: 36415; 80053; 85025

== ENCOUNTER 2022-09-08 02:46 | Outpatient (CLI) | payer MEDICARE, SELFPAY ==
[2022-09-08 09:51] LABS: Abs Immature Grans 0.04 10^3/uL (0.0-0.06); Absolute Basophil Count 0.01 10^3/uL (0.0-0.2); Absolute Eosinophil Count 0.01 10^3/uL (0.0-0.7); Absolute Lymphocyte Count 0.42 10^3/uL (1.2-3.4); Absolute Monocyte Count 0.67 10^3/uL (0.1-0.8); Absolute Neutrophil Count 7.95 10^3/uL (1.2-6.7); Basophils % 0.1; Eosinophils % 0.1; HCT 32.8 % (40.0-50.0); HGB 10.8 g/dL (13.5-17.5); Immature Grans % 0.4; Lymphocytes % 4.6; MCH 30.6 pg (27.0-33.0); MCHC 32.9 % (32.0-36.0); MCV 93 fL (80-95); MPV 10.1 fL (8.0-11.0); Monocytes % 7.4; Neutrophils % 87.4; Platelet Count 122 10^3/uL (130-400); RBC 3.53 10^6/uL (4.36-5.78); RDW 16.1 % (11.8-14.1); RDW-SD 52.1 fL
[2022-09-08 10:04] LABS: ALT 25 U/L (16-63); AST 13 U/L (15-37); Albumin 3.3 g/dL (3.4-5.0); Alkaline Phosphatase 93 U/L (46-116); Anion Gap 8.2 mmol/L (3-11); BUN 28 mg/dL (7-18); Bilirubin, Total 0.3 mg/dL (0.2-1.0); CO2 26.8 mmol/L (21.0-32.0); CREATININE 1.4 mg/dL (0.70-1.30); Calcium 9.5 mg/dL (8.5-10.1); Chloride 103 mmol/L (98-107); Estimated GFR 52.09 (mL/min/1.73m2); Glucose 227 mg/dL (74-106); Potassium 4.8 mmol/L (3.5-5.1); Sodium 138 mmol/L (136-145); Total Protein 6.9 g/dL (6.4-8.2)
== END 2022-09-08 02:47 | disposition home or self-care (01) ==
PROVIDERS: PCP Family Medicine; Visit Provider Internal Medicine Medical Oncology
DX: C34.11 Malignant neoplasm of upper lobe, right bronchus or lung (principal)
CPT/HCPCS: 36415; 80053; 85025

== ENCOUNTER 2022-09-09 03:34 | Outpatient (CLI) | payer MEDICARE, SELFPAY ==
[2022-09-09] MEDS: Albuterol HFA 18 GM 200 PUFF INH IH (14:39)
[2022-09-09] MEDS: Inhaler, Assist Device 1 EACH MC (14:39)
--- NOTE | 2022-09-09 15:24 | W.PFT ---
Date of service: 09/09/22 Time of Service: 12:52 Pulmonary Function Test Result Requesting Provider Rosendo Velasco Indications: Lung cancer, COPD Interpretation Spirometry: There is moderate airflow limitation. There is no significant bronchodilator response. Lung Volumes: Normal lung volumes Diffusion Capacity: Decreased diffusion Airway Pressure: Normal airways resistance Impression Moderate airflow obstruction with a reduced diffusion. 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 Clinical Correlation therefore is recommended.
== END 2022-09-09 03:35 | disposition home or self-care (01) ==
LOC: RT 03:34
PROVIDERS: PCP Family Medicine; Visit Provider Internal Medicine Medical Oncology
DX: R94.2 Abnormal results of pulmonary function studies (principal); R05.9 Cough, unspecified; R06.09 Other forms of dyspnea; R06.2 Wheezing; Z87.891 Personal history of nicotine dependence; C34.11 Malignant neoplasm of upper lobe, right bronchus or lung
CPT/HCPCS: 94060; 94726; 94729

== ENCOUNTER 2022-09-09 16:50 | Outpatient (CLI) | payer MEDICARE, SELFPAY ==
[2022-09-09] MEDS: Omnipaque 350 MG/ML 100 ML BTL 70 ML IJ (15:26)
--- NOTE | 2022-09-09 15:31 | DI.CT_ITS ---
Exam(s) CT CHEST W EXAM: CT CHEST W CLINICAL HISTORY: RT UPPER LOBE LUNG CA, C34.11, CT AFTER COMPLETING CYCLE # 6 THERAPY. TECHNIQUE: Multi planar reconstructions were performed. CONTRAST MATERIAL: Omnipaque 350; 75 cc COMPARISON: CT CT CHEST W/CONTRAST from 07/28/2022 FINDINGS: CHEST: Compared to outside CT scan performed 07/23/2022 LUNGS: The size of the large cavitated right upper lobe mass has decreased but not resolved. This ap pears to be in communication with the right upper lobe bronchus. The amount of surrounding infiltrat e has decreased but not completely resolved. The remainder of the right lung is clear with no signif icant findings in the right lower lobe and no pleural effusion. There are no significant focal findi ngs in the opposite-left lung. MEDIASTINUM: Right hilar and contiguous mediastinal adenopathy is again evident. Also subcarinal muna nopathy. Opposite-left hilum appears unremarkable. There is no adenopathy in the anterior mediastin al fat. CARDIAC: Heart size is normal. There is no pericardial effusion.Caliber of the thoracic aorta is wit hin normal limits. VISUALIZED UPPER ABDOMEN:There are no significant adrenal masses. No splenomegaly. No lesions seen in the visualized liver. Gallbladder surgically absent. Biliary tree not dilated. OSSEOUS: No significant osseous lesions.No fractures.. IMPRESSION: 1. Compared to the outside scan of 07/23/2022 the size of the large right upper lobe malignant-appear ing cavitated mass has somewhat decreased in size. There is contiguous right hilar and mediastinal a denopathy again evident as well as subcarinal adenopathy. No new additional lung findings nor pleura l effusions. 2. No osseous lesions evident. RADIATION DOSE DELIVERED: 523.63mGy.cm Total DLP DATA REPOSITORY: All CT scans at this facility are submitted to the National Radiology Data Registry (NRDR) Dose Index Registry (DIR) with the [employer] (ACR). RADIATION OPTIMIZATION: All CT scans at this facility use at least one of these dose optimization te chniques: automated exposure control; mA and/or kV adjustment per patient size (includes targeted exa ms where dose is matched to clinical indication); or iterative reconstruction.
== END 2022-09-09 17:10 ==
LOC: DI 16:52
PROVIDERS: PCP Family Medicine; Visit Provider Internal Medicine Medical Oncology
DX: C34.11 Malignant neoplasm of upper lobe, right bronchus or lung (principal); R59.0 Localized enlarged lymph nodes
CPT/HCPCS: 71260; J3490

== ENCOUNTER 2022-09-15 15:10 | Outpatient (CLI) | payer MEDICARE, SELFPAY ==
[2022-09-15 12:26] LABS: Abs Immature Grans 0.04 10^3/uL (0.0-0.06); Absolute Basophil Count 0.02 10^3/uL (0.0-0.2); Absolute Eosinophil Count 0.01 10^3/uL (0.0-0.7); Absolute Lymphocyte Count 0.47 10^3/uL (1.2-3.4); Absolute Monocyte Count 0.36 10^3/uL (0.1-0.8); Absolute Neutrophil Count 6.05 10^3/uL (1.2-6.7); Basophils % 0.3; Eosinophils % 0.1; HCT 31.6 % (40.0-50.0); HGB 10.5 g/dL (13.5-17.5); Immature Grans % 0.6; Lymphocytes % 6.8; MCH 30.7 pg (27.0-33.0); MCHC 33.2 % (32.0-36.0); MCV 92 fL (80-95); MPV 10.6 fL (8.0-11.0); Monocytes % 5.2; RBC 3.42 10^6/uL (4.36-5.78); RDW 16.3 % (11.8-14.1); RDW-SD 53.3 fL; WBC 6.95 10^3/uL (4.4-10.8)
[2022-09-15 12:37] LABS: Diff Comment Diff Reviewed; Platelet Count 93 10^3/uL (130-400); RBC Morphology Normal
[2022-09-15 12:40] LABS: ALT 23 U/L (16-63); AST 16 U/L (15-37); Albumin 3.1 g/dL (3.4-5.0); Alkaline Phosphatase 92 U/L (46-116); Anion Gap 5.7 mmol/L (3-11); BUN 19 mg/dL (7-18); Bilirubin, Total 0.3 mg/dL (0.2-1.0); CO2 27.3 mmol/L (21.0-32.0); CREATININE 1.4 mg/dL (0.70-1.30); Calcium 9.3 mg/dL (8.5-10.1); Chloride 102 mmol/L (98-107); Estimated GFR 51.77 (mL/min/1.73m2); Glucose 306 mg/dL (74-106); Potassium 5.2 mmol/L (3.5-5.1); Sodium 135 mmol/L (136-145); Total Protein 6.9 g/dL (6.4-8.2)
== END 2022-09-15 15:11 | disposition home or self-care (01) ==
LOC: LBO 15:11
PROVIDERS: PCP Family Medicine; Visit Provider Internal Medicine Medical Oncology
DX: C34.11 Malignant neoplasm of upper lobe, right bronchus or lung (principal)
CPT/HCPCS: 36415; 80053; 85025

== ENCOUNTER 2022-09-26 01:10 | Outpatient (CLI) | payer MEDICARE, SELFPAY ==
--- NOTE | 2022-09-26 11:00 | DI.CT_ITS ---
Exam(s) CT CHEST W EXAM: CT CHEST W CLINICAL HISTORY: RT UPPER LOBE LUNG CA, C34.11, ? PNEUMONITIS,IMMUNOTHERAPY-RELATED TOXICITY TECHNIQUE: Imaging Protocol: Axial computed tomography images with coronal and sagittal reformatted images were created and reviewed CONTRAST MATERIAL: Intravenous: Omnipaque 350Contrast volume:70 mL. COMPARISON: CT CT CHEST W from 09/09/2022 FINDINGS: Tracheobronchial tree: Patent where visualized. Pulmonary parenchyma: There has been no change in size of the cavitary mass involving the right upper lobe. The lungs are otherwise clear no focal consolidating infiltrates are seen. No new pulmonary nodules are present. Mediastinum and Martina: There is stable mediastinal and right hilar adenopathy. The esophagus is unrem arkable. Thyroid gland: Unremarkable. Pleura: No effusion or pneumothorax. Heart: The heart is not dilated. Coronary artery calcifications are present. No pericardial effusion . Aorta: Thoracic aorta non-dilated. There is mild atherosclerosis. Pulmonary arteries: Due to the timing of the bolus, pulmonary emboli cannot be adequately evaluated. Note is again made of extrinsic compression of the pulmonary artery branch to the right upper lobe. Upper abdomen: Status post cholecystectomy. Lymph nodes: Within normal limits. Bones: Within normal limits for the patient's age. No aggressive osseous lesions. Soft tissues: Unremarkable. IMPRESSION: Stable right upper lobe cavitary mass and right hilar mediastinal adenopathy. RADIATION DOSE DELIVERED: 517.79mGy.cm Total DLP DATA REPOSITORY: All CT scans at this facility are submitted to the National Radiology Data Registry (NRDR) Dose Index Registry (DIR) with the [employer] (ACR). RADIATION OPTIMIZATION: All CT scans at this facility use at least one of these dose optimization te chniques: automated exposure control; mA and/or kV adjustment per patient size (includes targeted exa ms where dose is matched to clinical indication); or iterative reconstruction.
[2022-09-26] MEDS: Normal Saline - Diluent 50 ML VIAL IJ (11:19)
[2022-09-26] MEDS: Omnipaque 350 MG/ML 500 ML BTL-Imaging package IJ (11:24)
== END 2022-09-26 01:30 ==
LOC: DI 01:10
PROVIDERS: PCP Family Medicine; Visit Provider Nurse Practitioner Family
DX: C34.11 Malignant neoplasm of upper lobe, right bronchus or lung (principal)
CPT/HCPCS: 71260

== ENCOUNTER 2022-09-29 01:07 | Outpatient (CLI) | payer MEDICARE, SELFPAY ==
[2022-09-29 12:41] LABS: Abs Immature Grans 0.01 10^3/uL (0.0-0.06); Absolute Basophil Count 0.02 10^3/uL (0.0-0.2); Absolute Eosinophil Count 0.04 10^3/uL (0.0-0.7); Absolute Lymphocyte Count 0.64 10^3/uL (1.2-3.4); Absolute Monocyte Count 0.37 10^3/uL (0.1-0.8); Absolute Neutrophil Count 2.57 10^3/uL (1.2-6.7); Basophils % 0.5; Eosinophils % 1.1; HCT 31.5 % (40.0-50.0); HGB 10.5 g/dL (13.5-17.5); Immature Grans % 0.3; Lymphocytes % 17.5; MCH 31.2 pg (27.0-33.0); MCHC 33.3 % (32.0-36.0); MCV 94 fL (80-95); MPV 9.6 fL (8.0-11.0); Monocytes % 10.1; Neutrophils % 70.5; Platelet Count 199 10^3/uL (130-400); RBC 3.37 10^6/uL (4.36-5.78); RDW 17.8 % (11.8-14.1); RDW-SD 59.5 fL; WBC 3.65 10^3/uL (4.4-10.8)
[2022-09-29 13:10] LABS: ALT 17 U/L (16-63); AST 13 U/L (15-37); Albumin 3.5 g/dL (3.4-5.0); Alkaline Phosphatase 103 U/L (46-116); Anion Gap 8.7 mmol/L (3-11); BUN 15 mg/dL (7-18); Bilirubin, Total 0.2 mg/dL (0.2-1.0); CO2 26.3 mmol/L (21.0-32.0); CREATININE 1.4 mg/dL (0.70-1.30); Calcium 9.3 mg/dL (8.5-10.1); Chloride 103 mmol/L (98-107); Estimated GFR 51.77 (mL/min/1.73m2); Glucose 190 mg/dL (74-106); Potassium 4.4 mmol/L (3.5-5.1); Sodium 138 mmol/L (136-145); TSH 3.34 uIU/mL (0.36-3.74); Total Protein 7.2 g/dL (6.4-8.2)
== END 2022-09-29 01:08 | disposition home or self-care (01) ==
LOC: LBO 01:07
PROVIDERS: PCP Family Medicine; Visit Provider Internal Medicine Medical Oncology
DX: C34.11 Malignant neoplasm of upper lobe, right bronchus or lung (principal); Z79.899 Other long term (current) drug therapy
CPT/HCPCS: 36415; 80053; 84443; 85025

== ENCOUNTER 2022-10-27 03:08 | Outpatient (CLI) | payer MEDICARE, SELFPAY ==
[2022-10-27 12:04] LABS: Abs Immature Grans 0.07 10^3/uL (0.0-0.06); Absolute Basophil Count 0.06 10^3/uL (0.0-0.2); Absolute Eosinophil Count 0.14 10^3/uL (0.0-0.7); Absolute Monocyte Count 0.91 10^3/uL (0.1-0.8); Absolute Neutrophil Count 9.73 10^3/uL (1.2-6.7); Basophils % 0.5; Eosinophils % 1.2; HCT 34.8 % (40.0-50.0); HGB 11.5 g/dL (13.5-17.5); Immature Grans % 0.6; Lymphocytes % 7.6; MCH 32.5 pg (27.0-33.0); MCV 98 fL (80-95); MPV 11.1 fL (8.0-11.0); Monocytes % 7.7; Neutrophils % 82.4; Platelet Count 175 10^3/uL (130-400); RBC 3.54 10^6/uL (4.36-5.78); RDW 16.5 % (11.8-14.1); RDW-SD 59.9 fL; WBC 11.81 10^3/uL (4.4-10.8)
[2022-10-27 12:27] LABS: ALT 33 U/L (16-63); AST 21 U/L (15-37); Albumin 3.2 g/dL (3.4-5.0); Alkaline Phosphatase 89 U/L (46-116); Anion Gap 5.6 mmol/L (3-11); BUN 17 mg/dL (7-18); Bilirubin, Total 0.3 mg/dL (0.2-1.0); CO2 27.4 mmol/L (21.0-32.0); CREATININE 1.4 mg/dL (0.70-1.30); Calcium 8.5 mg/dL (8.5-10.1); Chloride 105 mmol/L (98-107); Estimated GFR 51.77 (mL/min/1.73m2); Glucose 199 mg/dL (74-106); Sodium 138 mmol/L (136-145); Total Protein 6.7 g/dL (6.4-8.2)
== END 2022-10-27 03:09 | disposition home or self-care (01) ==
LOC: LBO 03:08
PROVIDERS: PCP Family Medicine; Visit Provider Internal Medicine Medical Oncology
DX: C34.11 Malignant neoplasm of upper lobe, right bronchus or lung (principal)
CPT/HCPCS: 36415; 80053; 83036; 85025

== ENCOUNTER 2022-11-24 01:36 | Outpatient (CLI) | payer MEDICARE, SELFPAY ==
[2022-11-24 12:22] LABS: Abs Immature Grans 0.04 10^3/uL (0.0-0.06); Absolute Basophil Count 0.06 10^3/uL (0.0-0.2); Absolute Lymphocyte Count 1.05 10^3/uL (1.2-3.4); Absolute Neutrophil Count 9.35 10^3/uL (1.2-6.7); Basophils % 0.5; Eosinophils % 2.5; HCT 36.5 % (40.0-50.0); HGB 12.4 g/dL (13.5-17.5); Immature Grans % 0.3; Lymphocytes % 8.9; MCH 33.1 pg (27.0-33.0); MCV 97 fL (80-95); MPV 10.6 fL (8.0-11.0); Monocytes % 8.6; Neutrophils % 79.2; Platelet Count 168 10^3/uL (130-400); RBC 3.75 10^6/uL (4.36-5.78); RDW 12.4 % (11.8-14.1); RDW-SD 44.3 fL; WBC 11.81 10^3/uL (4.4-10.8)
[2022-11-24 12:23] LABS: Absolute Monocyte Count 1.02 10^3/uL (0.1-0.8)
[2022-11-24 12:37] LABS: ALT 30 U/L (16-63); AST 18 U/L (15-37); Albumin 3.5 g/dL (3.4-5.0); Alkaline Phosphatase 91 U/L (46-116); Anion Gap 6.8 mmol/L (3-11); BUN 18 mg/dL (7-18); Bilirubin, Total 0.4 mg/dL (0.2-1.0); CO2 28.2 mmol/L (21.0-32.0); CREATININE 1.5 mg/dL (0.70-1.30); Chloride 103 mmol/L (98-107); Estimated GFR 47.65 (mL/min/1.73m2); Glucose 131 mg/dL (74-106); Potassium 4.1 mmol/L (3.5-5.1); Sodium 138 mmol/L (136-145)
== END 2022-11-24 01:37 | disposition home or self-care (01) ==
LOC: LBO 01:36
PROVIDERS: PCP Family Medicine; Visit Provider Internal Medicine Medical Oncology
DX: C34.11 Malignant neoplasm of upper lobe, right bronchus or lung (principal)
CPT/HCPCS: 36415; 80053; 85025

== ENCOUNTER 2022-12-17 02:00 | Outpatient (CLI) | payer MEDICARE, SELFPAY ==
--- NOTE | 2022-12-17 | DI.CT_ITS ---
Exam(s) CT CHEST W EXAM: CT CHEST W CLINICAL HISTORY: ASSESS TREATMENT RESPONSE, RUL LUNG CA, C34.11 TECHNIQUE: Imaging Protocol: Axial computed tomography images with coronal and sagittal reformatted images were created and reviewed CONTRAST MATERIAL: Intravenous: Omnipaque 350Contrast volume:70 mL. COMPARISON: CT CT CHEST W from 09/26/2022 FINDINGS: Tracheobronchial tree: Patent where visualized. Pulmonary parenchyma: The right upper lobe cavitary mass has shown slight decrease in size compared t o 09/26/2022. The mass measures 5.3 x 2.9 x 5.0 cm. This compares to 5.5 x 2.8 x 6 cm. No new pulmo nary nodules or masses are seen. No focal consolidating infiltrates are present. Mediastinum and Martina: There has been interval decrease in size of the mediastinal adenopathy. There is a subcarinal lymph node which now measures 1.6 x 0.8 cm. This compares to 2 x 1.3 cm. The esopha khoi is unremarkable. Thyroid gland: Unremarkable. Pleura: There is a tiny right pleural effusion. No left pleural effusion or pneumothorax is identifi ed. Heart: The heart is not dilated. Moderately severe coronary artery calcification is present. No wai cardial effusion. Aorta: Thoracic aorta non-dilated. Mild atherosclerosis. No evidence of dissection. Pulmonary arteries: The peripheral pulmonary arteries are inadequately opacified for evaluation of pu lmonary emboli. No large central pulmonary embolus is present. Upper abdomen: Status post cholecystectomy. No significant biliary ductal dilatation. Lymph nodes: Within normal limits. Bones: Within normal limits for the patient's age. No aggressive osseous lesions are seen. Soft tissues: Unremarkable. IMPRESSION: 1. Interval decrease in size of the cavitary mass in the right upper lobe. 2. Decrease in size of mediastinal lymph node. 3. Tiny right pleural effusion. RADIATION DOSE DELIVERED: 654.06mGy.cm Total DLP DATA REPOSITORY: All CT scans at this facility are submitted to the National Radiology Data Registry (NRDR) Dose Index Registry (DIR) with the [employer] (ACR). RADIATION OPTIMIZATION: All CT scans at this facility use at least one of these dose optimization te chniques: automated exposure control; mA and/or kV adjustment per patient size (includes targeted exa ms where dose is matched to clinical indication); or iterative reconstruction.
[2022-12-17] MEDS: Omnipaque 350 MG/ML 500 ML BTL-Imaging package IJ (13:02)
[2022-12-17] MEDS: Normal Saline - Diluent 50 ML VIAL IJ (13:03)
[2022-12-17] MEDS: Normal Saline Flush 10 ML SYR IVP (13:04)
== END 2022-12-17 02:20 ==
PROVIDERS: PCP Family Medicine; Visit Provider Internal Medicine Medical Oncology
DX: C34.11 Malignant neoplasm of upper lobe, right bronchus or lung (principal); J44.9 Chronic obstructive pulmonary disease, unspecified
CPT/HCPCS: 71260

== ENCOUNTER 2022-12-22 03:11 | Outpatient (CLI) | payer MEDICARE, SELFPAY ==
[2022-12-22 13:11] LABS: TSH 4.22 uIU/mL (0.36-3.74)
[2022-12-22 13:25] LABS: Abs Immature Grans 0.04 10^3/uL (0.0-0.06); Absolute Basophil Count 0.06 10^3/uL (0.0-0.2); Absolute Eosinophil Count 0.18 10^3/uL (0.0-0.7); Absolute Lymphocyte Count 1.07 10^3/uL (1.2-3.4); Absolute Monocyte Count 0.92 10^3/uL (0.1-0.8); Absolute Neutrophil Count 7.83 10^3/uL (1.2-6.7); Basophils % 0.6; Eosinophils % 1.8; HCT 36.5 % (40.0-50.0); HGB 12.2 g/dL (13.5-17.5); Immature Grans % 0.4; Lymphocytes % 10.6; MCH 31.9 pg (27.0-33.0); MCHC 33.4 % (32.0-36.0); MCV 95 fL (80-95); MPV 11.4 fL (8.0-11.0); Monocytes % 9.1; Neutrophils % 77.5; Platelet Count 161 10^3/uL (130-400); RBC 3.83 10^6/uL (4.36-5.78); RDW 11.7 % (11.8-14.1); RDW-SD 40.6 fL
[2022-12-22 13:36] LABS: ALT 26 U/L (16-63); AST 14 U/L (15-37); Albumin 3.3 g/dL (3.4-5.0); Alkaline Phosphatase 81 U/L (46-116); Anion Gap 8.4 mmol/L (3-11); BUN 21 mg/dL (7-18); Bilirubin, Total 0.3 mg/dL (0.2-1.0); CO2 26.6 mmol/L (21.0-32.0); CREATININE 1.6 mg/dL (0.70-1.30); Calcium 9.1 mg/dL (8.5-10.1); Chloride 104 mmol/L (98-107); Glucose 180 mg/dL (74-106); Potassium 4.4 mmol/L (3.5-5.1); Sodium 139 mmol/L (136-145); Total Protein 6.9 g/dL (6.4-8.2)
[2022-12-22 15:13] LABS: FREE T4 0.87 ng/dL (0.76-1.46)
[2022-12-23 18:19] LABS: T3, Total 96 ng/dL (97-169)
== END 2022-12-22 03:12 | disposition home or self-care (01) ==
LOC: LBO 03:11
PROVIDERS: PCP Family Medicine; Visit Provider Internal Medicine Medical Oncology
DX: C34.11 Malignant neoplasm of upper lobe, right bronchus or lung (principal); Z79.899 Other long term (current) drug therapy
CPT/HCPCS: 36415; 80053; 84439; 84443; 84480; 85025

== ENCOUNTER 2023-01-19 03:26 | Outpatient (CLI) | payer MEDICARE, SELFPAY ==
[2023-01-19 12:16] LABS: Abs Immature Grans 0.01 10^3/uL (0.0-0.06); Absolute Basophil Count 0.04 10^3/uL (0.0-0.2); Absolute Eosinophil Count 0.31 10^3/uL (0.0-0.7); Absolute Lymphocyte Count 0.59 10^3/uL (1.2-3.4); Absolute Monocyte Count 0.91 10^3/uL (0.1-0.8); Absolute Neutrophil Count 5.87 10^3/uL (1.2-6.7); Basophils % 0.5; HCT 39.1 % (40.0-50.0); HGB 13.2 g/dL (13.5-17.5); Immature Grans % 0.1; Lymphocytes % 7.6; MCH 31.1 pg (27.0-33.0); MCHC 33.8 % (32.0-36.0); MCV 92 fL (80-95); MPV 10.5 fL (8.0-11.0); Monocytes % 11.8; Platelet Count 191 10^3/uL (130-400); RBC 4.24 10^6/uL (4.36-5.78); RDW 11.7 % (11.8-14.1); RDW-SD 39.9 fL; WBC 7.73 10^3/uL (4.4-10.8)
[2023-01-19 12:40] LABS: ALT 14 U/L (16-63); AST 12 U/L (15-37); Albumin 3.2 g/dL (3.4-5.0); Alkaline Phosphatase 80 U/L (46-116); Anion Gap 4.1 mmol/L (3-11); BUN 21 mg/dL (7-18); Bilirubin, Total 0.4 mg/dL (0.2-1.0); CO2 27.9 mmol/L (21.0-32.0); CREATININE 1.7 mg/dL (0.70-1.30); Calcium 8.8 mg/dL (8.5-10.1); Chloride 100 mmol/L (98-107); Estimated GFR 41.01 (mL/min/1.73m2); Glucose 208 mg/dL (74-106); Magnesium 1.9 mg/dL (1.8-2.4); Potassium 3.9 mmol/L (3.5-5.1); Sodium 132 mmol/L (136-145); TSH 2.42 uIU/mL (0.36-3.74); Total Protein 7.5 g/dL (6.4-8.2)
== END 2023-01-19 03:27 | disposition home or self-care (01) ==
PROVIDERS: PCP Family Medicine; Visit Provider Nurse Practitioner Family
DX: C34.11 Malignant neoplasm of upper lobe, right bronchus or lung (principal); Z79.899 Other long term (current) drug therapy
CPT/HCPCS: 36415; 80053; 83735; 84439; 84443; 85025

== ENCOUNTER 2023-03-16 02:45 | Outpatient (CLI) | payer MEDICARE, SELFPAY ==
[2023-03-16 13:16] LABS: Abs Immature Grans 0.04 10^3/uL (0.0-0.06); Absolute Basophil Count 0.05 10^3/uL (0.0-0.2); Absolute Lymphocyte Count 1.05 10^3/uL (1.2-3.4); Absolute Monocyte Count 0.78 10^3/uL (0.1-0.8); Absolute Neutrophil Count 8.02 10^3/uL (1.2-6.7); Basophils % 0.5; HGB 12.2 g/dL (13.5-17.5); Immature Grans % 0.4; Lymphocytes % 10.5; MCH 30.7 pg (27.0-33.0); MCV 93 fL (80-95); MPV 10.6 fL (8.0-11.0); Monocytes % 7.8; Neutrophils % 79.8; Platelet Count 194 10^3/uL (130-400); RBC 3.98 10^6/uL (4.36-5.78); RDW 13.4 % (11.8-14.1); RDW-SD 46.2 fL; WBC 10.04 10^3/uL (4.4-10.8)
[2023-03-16 13:47] LABS: ALT 20 U/L (16-63); AST 14 U/L (15-37); Albumin 3.4 g/dL (3.4-5.0); Alkaline Phosphatase 84 U/L (46-116); Anion Gap 10.5 mmol/L (3-11); BUN 20 mg/dL (7-18); Bilirubin, Total 0.4 mg/dL (0.2-1.0); CO2 26.5 mmol/L (21.0-32.0); CREATININE 1.5 mg/dL (0.70-1.30); Calcium 9.2 mg/dL (8.5-10.1); Chloride 101 mmol/L (98-107); Estimated GFR 47.65 (mL/min/1.73m2); FREE T4 1.02 ng/dL (0.76-1.46); Glucose 214 mg/dL (74-106); Magnesium 1.6 mg/dL (1.8-2.4); Potassium 3.8 mmol/L (3.5-5.1); Sodium 138 mmol/L (136-145); TSH 2.25 uIU/mL (0.36-3.74)
== END 2023-03-16 02:46 | disposition home or self-care (01) ==
PROVIDERS: Internal Medicine Medical Oncology; PCP Family Medicine; Referring Provider Nurse Practitioner Family; Visit Provider Nurse Practitioner Family
DX: Z79.899 Other long term (current) drug therapy (principal); C34.11 Malignant neoplasm of upper lobe, right bronchus or lung
CPT/HCPCS: 36415; 80053; 83735; 84439; 84443; 85025

== ENCOUNTER → 2023-04-07 03:22 | Outpatient (CLI) | payer MEDICARE, SELFPAY ==
--- NOTE | 2023-04-07 | DI.CT_ITS ---
Exam(s) CT CHEST/ABD/PEL W EXAM: CT CHEST/ABD/PEL W CLINICAL HISTORY: NSCLC, METS, ASSESS TREATMENT RESPONSE, C34.11. TECHNIQUE: Imaging Protocol: Axial computed tomography images with coronal and sagittal reformatted images were created and reviewed CONTRAST MATERIAL: Intravenous: Omnipaque 350 Contrast volume:100 ml Oral: Yes. Oral contrast was also administered for bowel opacification. COMPARISON: CT CT CHEST W from 12/17/2022 PET-CT scan 07/04/2022 FINDINGS: CHEST: LUNGS: Minimal change in the right upper lobe cavitated mass. And adjacent pleural thickening (no ad jacent rib destruction). However, there is now increasing infiltrate in the subjacent superior segme nt of the right lower lobe was not evident on the 12/17/2022 study. Basal segments of the right lowe r lobe appear unremarkable. Very small amount of right pleural fluid is again noted. The opposite-l eft lung remains clear. No infiltrates nor nodules nor pleural fluid on the left. MEDIASTINUM: The amount of right hilar adenopathy is unchanged.. Extension into the right precarinal level is unchanged. Two small subcarinal lymph nodes are unchanged. Opposite-right hilum remains u nremarkable. There is no adenopathy in the anterior mediastinal fat. CARDIAC: Heart size is normal. There is no pericardial effusion.Caliber of the thoracic aorta is wit hin normal limits. OSSEOUS: No significant osseous lesions.No new fractures.. ABDOMEN: There is no ascites. LIVER: There are no focal hepatic lesions nor dilatation of intrahepatic ducts. GALLBLADDER/BILIARY: Gallbladder is again noted be surgically absent. CBD is not dilated. PANCREAS: No evidence of pancreatic mass nor dilatation of the pancreatic duct. SPLEEN: Spleen is not enlarged. There are no intrasplenic lesions. Splenic and portal veins are angela nt. ADRENALS: There are no significant adrenal masses. KIDNEYS: No calculi nor hydronephrosis. No solid renal masses. No cysts evident. ABDOMINAL AORTA: Abdominal aorta is not enlarged. LYMPH NODES: There is no retroperitoneal nor paraaortic adenopathy. ABDOMINAL WALL: No evidence of significant anterior abdominal wall nor inguinal hernia. GI: There is no evidence of bowel obstruction.No new mesenteric masses. PELVIS: LYMPH NODES: There is no intrapelvic nor inguinal adenopathy. GI: No evidence of appendicitis.No evidence of sigmoid diverticulitis. URINARY BLADDER: No calculi nor masses evident REPRODUCTIVE: Prostate size normal. Seminal vesicles unremarkable OSSEOUS: No significant osseous lesions. IMPRESSION: 1. Relatively stable appearance of the partially cavitated right upper lobe mass and right hilar/righ t mediastinal adenopathy. However, there is some increasing infiltrate now evident in the superior s egment of the right lower lobe. Tiny amount of right pleural fluid noted. Opposite-left lung remain s clear. No left hilar adenopathy nor left pleural effusion 2. No new findings in the abdomen and pelvis. 3. Previous cholecystectomy. The biliary tree is not dilated. RADIATION DOSE DELIVERED: 1,667.58mGy.cm Total DLP DATA REPOSITORY: All CT scans at this facility are submitted to the National Radiology Data Registry (NRDR) Dose Index Registry (DIR) with the [employer] (ACR). RADIATION OPTIMIZATION: All CT scans at this facility use at least one of these dose optimization te chniques: automated exposure control; mA and/or kV adjustment per patient size (includes targeted exa ms where dose is matched to clinical indication); or iterative reconstruction.
[2023-04-07] MEDS: Barium Sulfate 2% W/V-Berry Smoothie 450 ML BTL 900 ML PO (11:24)
[2023-04-07] MEDS: Omnipaque 350 MG/ML 100 ML BTL IJ (13:25)
[2023-04-07] MEDS: Normal Saline - Diluent 50 ML VIAL IJ (13:26)
== END ==
PROVIDERS: PCP Family Medicine; Visit Provider Nurse Practitioner Family
DX: R91.8 Other nonspecific abnormal finding of lung field (principal); C34.11 Malignant neoplasm of upper lobe, right bronchus or lung; Z90.49 Acquired absence of other specified parts of digestive tract
CPT/HCPCS: 74177; 71260; J3490

== ENCOUNTER 2023-04-13 02:35 | Outpatient (CLI) | payer MEDICARE, SELFPAY ==
[2023-04-13 08:44] LABS: Abs Immature Grans 0.03 10^3/uL (0.0-0.06); Absolute Basophil Count 0.04 10^3/uL (0.0-0.2); Absolute Eosinophil Count 0.19 10^3/uL (0.0-0.7); Absolute Lymphocyte Count 0.57 10^3/uL (1.2-3.4); Absolute Monocyte Count 0.64 10^3/uL (0.1-0.8); Absolute Neutrophil Count 7.95 10^3/uL (1.2-6.7); Basophils % 0.4; HCT 36.8 % (40.0-50.0); HGB 12.3 g/dL (13.5-17.5); Immature Grans % 0.3; Lymphocytes % 6.1; MCH 30.4 pg (27.0-33.0); MCHC 33.4 % (32.0-36.0); MCV 91 fL (80-95); MPV 10.7 fL (8.0-11.0); Monocytes % 6.8; Neutrophils % 84.4; Platelet Count 165 10^3/uL (130-400); RBC 4.05 10^6/uL (4.36-5.78); RDW 13.2 % (11.8-14.1); RDW-SD 44.2 fL; WBC 9.42 10^3/uL (4.4-10.8)
[2023-04-13 09:08] LABS: ALT 15 U/L (16-63); AST 11 U/L (15-37); Albumin 3.2 g/dL (3.4-5.0); Alkaline Phosphatase 82 U/L (46-116); Anion Gap 9.1 mmol/L (3-11); BUN 20 mg/dL (7-18); Bilirubin, Total 0.4 mg/dL (0.2-1.0); CO2 27.9 mmol/L (21.0-32.0); CREATININE 1.6 mg/dL (0.70-1.30); Calcium 9.2 mg/dL (8.5-10.1); Chloride 101 mmol/L (98-107); FREE T4 0.93 ng/dL (0.76-1.46); Glucose 228 mg/dL (74-106); Sodium 138 mmol/L (136-145); TSH 4.57 uIU/mL (0.36-3.74); Total Protein 6.6 g/dL (6.4-8.2)
== END 2023-04-13 02:36 | disposition home or self-care (01) ==
LOC: LBO 02:35
PROVIDERS: PCP Family Medicine; Visit Provider Internal Medicine Medical Oncology
DX: Z79.899 Other long term (current) drug therapy (principal); C34.11 Malignant neoplasm of upper lobe, right bronchus or lung
CPT/HCPCS: 36415; 80053; 84439; 84443; 85025

== ENCOUNTER 2023-05-18 03:56 | Outpatient (CLI) | payer MEDICARE, SELFPAY ==
[2023-05-18 10:48] LABS: Absolute Basophil Count 0.02 10^3/uL (0.0-0.2); Absolute Lymphocyte Count 0.95 10^3/uL (1.2-3.4); Absolute Monocyte Count 0.79 10^3/uL (0.1-0.8); Basophils % 0.1; HGB 12.5 g/dL (13.5-17.5); Immature Grans % 0.6; Lymphocytes % 5.3; MCH 29.9 pg (27.0-33.0); MCHC 32.9 % (32.0-36.0); MCV 91 fL (80-95); MPV 11.1 fL (8.0-11.0); Monocytes % 4.4; Neutrophils % 89.6; Platelet Count 161 10^3/uL (130-400); RBC 4.18 10^6/uL (4.36-5.78); RDW 12.6 % (11.8-14.1); RDW-SD 41.2 fL; WBC 17.86 10^3/uL (4.4-10.8)
[2023-05-18 11:10] LABS: ALT 20 U/L (16-63); AST 8 U/L (15-37); Albumin 3.1 g/dL (3.4-5.0); Alkaline Phosphatase 92 U/L (46-116); Anion Gap 6.6 mmol/L (3-11); BUN 27 mg/dL (7-18); Bilirubin, Total 0.3 mg/dL (0.2-1.0); CO2 26.4 mmol/L (21.0-32.0); CREATININE 1.6 mg/dL (0.70-1.30); Calcium 9.2 mg/dL (8.5-10.1); Chloride 101 mmol/L (98-107); FREE T4 0.92 ng/dL (0.76-1.46); Glucose 305 mg/dL (74-106); Potassium 4.3 mmol/L (3.5-5.1); Sodium 134 mmol/L (136-145); TSH 0.77 uIU/mL (0.36-3.74); Total Protein 6.9 g/dL (6.4-8.2)
== END 2023-05-18 03:57 | disposition home or self-care (01) ==
PROVIDERS: PCP Family Medicine; Visit Provider Nurse Practitioner Family
DX: Z79.899 Other long term (current) drug therapy (principal); C34.11 Malignant neoplasm of upper lobe, right bronchus or lung
CPT/HCPCS: 36415; 80053; 83735; 84439; 84443; 85025

== ENCOUNTER 2023-06-08 03:44 | Outpatient (CLI) | payer MEDICARE, SELFPAY ==
[2023-06-08 09:01] LABS: Abs Immature Grans 0.08 10^3/uL (0.0-0.06); Absolute Basophil Count 0.05 10^3/uL (0.0-0.2); Absolute Eosinophil Count 0.07 10^3/uL (0.0-0.7); Absolute Lymphocyte Count 0.78 10^3/uL (1.2-3.4); Absolute Monocyte Count 0.69 10^3/uL (0.1-0.8); Absolute Neutrophil Count 9.68 10^3/uL (1.2-6.7); Basophils % 0.4; Eosinophils % 0.6; HCT 34.9 % (40.0-50.0); HGB 11.7 g/dL (13.5-17.5); Immature Grans % 0.7; Lymphocytes % 6.9; MCHC 33.5 % (32.0-36.0); MCV 90 fL (80-95); MPV 10.4 fL (8.0-11.0); Monocytes % 6.1; Neutrophils % 85.3; Platelet Count 245 10^3/uL (130-400); RDW 12.6 % (11.8-14.1); WBC 11.35 10^3/uL (4.4-10.8)
[2023-06-08 09:22] LABS: ALT 15 U/L (16-63); AST 12 U/L (15-37); Albumin 2.8 g/dL (3.4-5.0); Alkaline Phosphatase 68 U/L (46-116); Anion Gap 9.2 mmol/L (3-11); BUN 17 mg/dL (7-18); Bilirubin, Total 0.2 mg/dL (0.2-1.0); CO2 24.8 mmol/L (21.0-32.0); CREATININE 1.5 mg/dL (0.70-1.30); Calcium 9.6 mg/dL (8.5-10.1); Chloride 105 mmol/L (98-107); Estimated GFR 47.65 (mL/min/1.73m2); FREE T4 0.95 ng/dL (0.76-1.46); Glucose 142 mg/dL (74-106); Magnesium 1.8 mg/dL (1.8-2.4); Potassium 3.6 mmol/L (3.5-5.1); Sodium 139 mmol/L (136-145); TSH 2.21 uIU/mL (0.36-3.74); Total Protein 6.9 g/dL (6.4-8.2)
== END 2023-06-08 03:45 | disposition home or self-care (01) ==
LOC: LBO 03:45
PROVIDERS: PCP Family Medicine; Visit Provider Internal Medicine Medical Oncology
DX: Z79.899 Other long term (current) drug therapy (principal); C34.11 Malignant neoplasm of upper lobe, right bronchus or lung
CPT/HCPCS: 36415; 80053; 83735; 84439; 84443; 85025

== ENCOUNTER 2023-06-15 03:25 | Outpatient (CLI) | payer MEDICARE, SELFPAY ==
[2023-06-15 09:33] LABS: Abs Immature Grans 0.31 10^3/uL (0.0-0.06); Absolute Eosinophil Count 0.14 10^3/uL (0.0-0.7); Absolute Lymphocyte Count 1.02 10^3/uL (1.2-3.4); Absolute Monocyte Count 1.11 10^3/uL (0.1-0.8); Basophils % 0.3; Eosinophils % 0.9; HCT 39.9 % (40.0-50.0); HGB 12.9 g/dL (13.5-17.5); Lymphocytes % 6.5; MCH 29.9 pg (27.0-33.0); MCHC 32.3 % (32.0-36.0); MCV 92 fL (80-95); MPV 10.5 fL (8.0-11.0); Monocytes % 7.1; Neutrophils % 83.2; Platelet Count 165 10^3/uL (130-400); RBC 4.32 10^6/uL (4.36-5.78); RDW 13.4 % (11.8-14.1); RDW-SD 45.6 fL
[2023-06-15 09:34] LABS: Absolute Basophil Count 0.05 10^3/uL (0.0-0.2); Absolute Neutrophil Count 13.06 10^3/uL (1.2-6.7)
[2023-06-15 10:06] LABS: ALT 34 U/L (16-63); AST 15 U/L (15-37); Albumin 3.2 g/dL (3.4-5.0); Alkaline Phosphatase 83 U/L (46-116); Anion Gap 10.8 mmol/L (3-11); BUN 26 mg/dL (7-18); Bilirubin, Total 0.2 mg/dL (0.2-1.0); CO2 27.2 mmol/L (21.0-32.0); CREATININE 1.4 mg/dL (0.70-1.30); Calcium 9.3 mg/dL (8.5-10.1); Chloride 105 mmol/L (98-107); Estimated GFR 51.77 (mL/min/1.73m2); FREE T4 0.89 ng/dL (0.76-1.46); Glucose 141 mg/dL (74-106); Potassium 3.3 mmol/L (3.5-5.1); Sodium 143 mmol/L (136-145); TSH 3.54 uIU/mL (0.36-3.74); Total Protein 6.8 g/dL (6.4-8.2)
== END 2023-06-15 03:26 | disposition home or self-care (01) ==
PROVIDERS: PCP Family Medicine; Visit Provider Nurse Practitioner Family
DX: Z79.899 Other long term (current) drug therapy (principal); C34.11 Malignant neoplasm of upper lobe, right bronchus or lung
CPT/HCPCS: 36415; 80053; 83735; 84439; 84443; 85025

== ENCOUNTER → 2023-07-02 08:49 | Outpatient (BNVA) | payer MEDICARE, SELFPAY | PROVIDERS: PCP Family Medicine; Referring Provider Family Medicine; Visit Provider Student in an Organized Health Care Education/Training Program | DX: J44.9 Chronic obstructive pulmonary disease, unspecified (principal); Z79.899 Other long term (current) drug therapy; J98.11 Atelectasis; C34.11 Malignant neoplasm of upper lobe, right bronchus or lung | CPT/HCPCS: 99214 ==

== ENCOUNTER → 2023-08-06 11:18 | Outpatient (BNVA) | payer MEDICARE, SELFPAY | PROVIDERS: PCP Family Medicine; Referring Provider Family Medicine; Visit Provider Student in an Organized Health Care Education/Training Program | DX: C34.90 Malignant neoplasm of unspecified part of unspecified bronchus or lung (principal); J98.11 Atelectasis; J44.9 Chronic obstructive pulmonary disease, unspecified | CPT/HCPCS: 76604; 94664; 99214 ==

== ENCOUNTER → 2023-10-14 02:04 | Outpatient (CLI) | payer MEDICARE, SELFPAY ==
--- NOTE | 2023-10-14 | DI.CT_ITS ---
Exam(s) CT CHEST/ABD/PEL W EXAM: CT CHEST/ABD/PEL W CLINICAL HISTORY: LUNG CA,C34.11,SECONDARY CA ABD,C79.89,?PNEUMONITIS,RESTAGING TECHNIQUE: Imaging Protocol: Axial computed tomography images with coronal and sagittal reformatted images were created and reviewed CONTRAST MATERIAL: Intravenous: Omnipaque 350 contrast volume:100 mL Oral: Yes COMPARISON: CT CT CHEST W from 09/09/[address] CHEST W from 09/26/[address] CHEST W from 12/17/[address] CHEST/ABD/PEL W from 04/07/2023 FINDINGS: CHEST: Tracheobronchial tree: 0.7 cm soft tissue in the right lower lobe bronchus (series 7, image 192). Pulmonary parenchyma: The area of cavitation is not visualized on the current examination. Since the prior examination there has been significant volume loss in the right hemithorax with a shift of the mediastinum to the right. There are areas of dense consolidation in the the right hilum and right u pper lung field. There has also been an increase in the right pleural effusion which is large now. The left lung is hyperinflated. No pulmonary nodules or infiltrates are seen in the left lung. Ther e is mild increased density seen in the fluid in the right lung apex. This may be compressed lung, t umor, metastasis. It is ill-defined. Visualized thyroid gland: Unremarkable. Mediastinum and Martina: No dominant adenopathy or fluid collection. The esophagus is unremarkable. Pleura: No left pleural effusion or left pneumothorax. Heart: The heart is not dilated. Coronary artery calcifications are present. No pericardial effusion . Pulmonary arteries: No pulmonary emboli are identified. Aorta: Thoracic aorta non-dilated. No evidence of dissection. Mild atherosclerotic calcification. Lymph nodes: No significant axillary adenopathy. Soft tissues: Unremarkable. Bones:Within normal limits for the patient's age. No aggressive osseous lesions are identified. ABDOMEN: Liver: Normal density. There are few tiny hypodensities in the liver which are too small for further characterization. No suspicious hepatic masses are seen. Portal, Superior Mesenteric, and Splenic Veins: Unremarkable. Gallbladder and Biliary Tract: Status post cholecystectomy. No significant biliary ductal dilatation is present. Pancreas: Normal density, no abnormal calcifications or inflammatory process. Spleen: Normal. Adrenals: No masses seen. Kidneys: Normal size, contour and axis. No radiodense stones or obstructive uropathy. No masses seen. Abdominal Aorta: Abdominal portion non-dilated. Atherosclerotic calcification is present. Bowel: There are few diverticula seen in the colon but no evidence of acute diverticulitis. There is an encapsulated fatty lesion arising from the proximal transverse colon (series 14, image 406). It measures 1.4 x 0.9 cm. This may represent small omental infarct or epiploic appendagitis. Appendix is unremarkable. No evidence of bowel wall thickening or obstruction. Peritoneal Cavity: No ascites, collection or mesenteric inflammatory response. No free air. Lymph Nodes: Within normal limits. Bones: Within normal limits for the patient's age. No aggressive osseous lesions are identified. Soft Tissues: There is a fat containing left inguinal hernia. Probable postsurgical changes seen in the right inguinal region. PELVIS: Bladder: Symmetric distention, no gross wall thickening. Reproductive Organs: Unremarkable as visualized. Lymph Nodes: Within normal limits. Bones: Within normal limits. IMPRESSION: 1. No evidence of progressive or new abdominal or pelvic metastatic disease. 2. 1.4 x 0.9 cm encapsulated fat lesion arising from the adjacent proximal transverse colon. Differe ntial considerations include small omental infarct or epiploic appendagitis. Please correlate clinic ally. 3. Colonic diverticula but no evidence of acute diverticulitis. 4. In the chest there has been interval volume loss of the right hemithorax with dense areas of conso lidation/atelectasis involving the lungs. The cavitary lesion is not visualized on this examination. There is also been an interval increase in size of the right pleural effusion which is now large. There is also a rightward shift of the mediastinum secondary to the right volume loss. 5. The left lung is hyperinflated. No infiltrates or nodules are seen in the left lung. No left ple ural effusion or pneumothorax is seen. 6. Ill-defined soft tissue density in the right lung apex. Differential considerations include atele ctasis, consolidation, neoplasm or metastatic disease. RADIATION DOSE DELIVERED: 1,705.74mGy.cm Total DLP DATA REPOSITORY: All CT scans at this facility are submitted to the National Radiology Data Registry (NRDR) Dose Index Registry (DIR) with the [employer] (ACR). RADIATION OPTIMIZATION: All CT scans at this facility use at least one of these dose optimization te chniques: automated exposure control; mA and/or kV adjustment per patient size (includes targeted exa ms where dose is matched to clinical indication); or iterative reconstruction.
[2023-10-14 11:08] LABS: Abs Immature Grans 0.03 10^3/uL (0.0-0.06); Absolute Basophil Count 0.06 10^3/uL (0.0-0.2); Absolute Eosinophil Count 0.22 10^3/uL (0.0-0.7); Absolute Lymphocyte Count 1.12 10^3/uL (1.2-3.4); Basophils % 0.6; Eosinophils % 2.3; HCT 37.7 % (40.0-50.0); HGB 12.6 g/dL (13.5-17.5); Immature Grans % 0.3; Lymphocytes % 11.8; MCH 30.4 pg (27.0-33.0); MCHC 33.4 % (32.0-36.0); MCV 91 fL (80-95); MPV 10.6 fL (8.0-11.0); Monocytes % 7.3; Neutrophils % 77.7; Platelet Count 202 10^3/uL (130-400); RBC 4.14 10^6/uL (4.36-5.78); RDW 11.9 % (11.8-14.1); WBC 9.53 10^3/uL (4.4-10.8)
[2023-10-14] MEDS: Barium Sulfate 2% W/V-Berry Smoothie 450 ML BTL PO ×2 (11:13→11:15)
[2023-10-14 11:37] LABS: ALT 22 U/L (16-63); AST 20 U/L (15-37); Albumin 3.4 g/dL (3.4-5.0); Alkaline Phosphatase 83 U/L (46-116); Anion Gap 10.1 mmol/L (3-11); BUN 12 mg/dL (7-18); Bilirubin, Total 0.4 mg/dL (0.2-1.0); CO2 25.9 mmol/L (21.0-32.0); CREATININE 1.4 mg/dL (0.70-1.30); Calcium 9.1 mg/dL (8.5-10.1); Chloride 104 mmol/L (98-107); Estimated GFR 51.45 (mL/min/1.73m2); FREE T4 1.06 ng/dL (0.76-1.46); Glucose 85 mg/dL (74-106); Magnesium 1.9 mg/dL (1.8-2.4); Potassium 3.9 mmol/L (3.5-5.1); Sodium 140 mmol/L (136-145)
[2023-10-14] MEDS: Normal Saline - Diluent 50 ML VIAL IJ (13:07)
[2023-10-14] MEDS: Omnipaque 350 MG/ML 100 ML BTL IJ (13:09)
== END ==
PROVIDERS: PCP Family Medicine; Visit Provider Internal Medicine Medical Oncology
DX: Z79.899 Other long term (current) drug therapy (principal); C34.11 Malignant neoplasm of upper lobe, right bronchus or lung; C79.89 Secondary malignant neoplasm of other specified sites
CPT/HCPCS: 74177; 80053; 71260; 83735; 84439; 84443; 85025; J3490

== ENCOUNTER → 2023-10-15 12:58 | Outpatient (BNVA) | payer MEDICARE, SELFPAY | PROVIDERS: PCP Family Medicine; Referring Provider Family Medicine; Visit Provider Physician Assistant Surgical | DX: J44.9 Chronic obstructive pulmonary disease, unspecified (principal); C34.90 Malignant neoplasm of unspecified part of unspecified bronchus or lung; J98.11 Atelectasis; J90 Pleural effusion, not elsewhere classified | CPT/HCPCS: 99214 ==

== ENCOUNTER 2023-10-30 11:49 | Day surgery (SDC) | payer MEDICARE, SELFPAY ==
[2023-10-30 12:00] VITALS: BP 109/80; PULSE 88; RESP 12; TEMP 36.1; O2SAT 96
--- NOTE | 2023-10-30 13:25 | PAPNONF_PTH ---
PATIENT: Grgeg Bella LOC: [facility] U#:[id number] AGE/SX: 78/M ROOM: RE10/30/[address]: Margoth Balderas MD : 1945 BED: DIS: 10/30/2023 SPEC #: [id number] RECD: 10/30/23 17:17 STATUS: JEREMI REQ #: [id number] ELISE: 10/30/23 13:[address]: Margoth Balderas DEPT: [facility] Cytology RECD BY: Ayleen Schmidt ENTERED: 10/30/23 17:18 SP TYPE: RODRÍGUEZ MAK DR: Arun Justin Tissues: 1 - BODY FLUID CYTO(NOT S/U/N/EM)[facility] Procedures: BODY FLUID CYTO(NOT SPU/UR/NIP/ENDOM)[facility] CYTOLOGY CELL BLOCK Comments: [id number] (TV = 1000 ml, SENT FRESH) (REFRIGERATED)
[2023-10-30 13:40] VITALS: BP 139/103; PULSE 90; RESP 17; TEMP 36.2; O2SAT 95
[2023-10-30 14:00] LABS: Source: Pleural
--- NOTE | 2023-10-30 14:05 | ROE_ITS ---
Date of service: 10/30/23 Time of Service: 13:00 Operative Note Operative Note Refer to Anesthesia Record Procedure Description: Thoracentesis The patient gave written informed consent for the procedure after risks and bene fits were explained to him. Patient was brought to the procedure room where his vital signs were taken and were all within normal limits. A complete and OR compliant time out was performed indicating correct patient, site and procedure. Patient was positioned sitting over the side of the bed, leaning forward on a table. I completed an ultrasound of the right lung and found a moderate pleural effusion. A good pocket was found and the site was marked. The area was cleaned and draped in normal sterile fashion. The site was anesthetized with 6cc or lidocaine effectively. The catheter was inserted (noting the lung was approximately 5cm from skin) without complication. Pleural fluid was withdrawn that was yellow and transparent in appearance. 50cc of fluid was collected in a syringe and an additional 1.2L was collected for cytopathology into appropriate bottles. Drainage was still flowing well but the patient started to develop chest pain which was worsening so decision was made to stop the procedure. Pulse ox after the procedure was 96%. I did another ultrasound exam of the lung and found good lung slide both at the site of the thoracentesis and anteriorly. The case was terminated and the patient was brought back to [facility] in stable condition. Post procedure chest x-ray was negative for a pneumothorax. Specimens collected: 1.2 L of pleural fluid of the right lung Tests ordered: Cell diff, cultures, glucose, ldh, protein, pH, cytopathology Margoth Balderas MD Pulmonary & Critical Care
[2023-10-30] MEDS: Acetaminophen 500 MG TAB 1000 MG PO (14:18)
--- NOTE | 2023-10-30 14:20 | DI.RAD_ITS ---
Exam(s) XR PORTABLE CHEST AP EXAM: XR PORTABLE CHEST AP CLINICAL HISTORY: thoracentesis TECHNIQUE: 2D digital imaging was performed. COMPARISON: CR XR CHEST ONE VIEW from 06/23/[address] CHEST/ABD/PEL W from 10/14/2023 FINDINGS: LUNGS: Significant right-sided chest volume loss with mediastinal shift toward the right.. Increased density right upper lobe. No evidence of pneumothorax. Left lung clear. HEART: Normal size. AORTA: Normal diameter. BONES: Unremarkable for age. Soft tissues: Unremarkable. IMPRESSION: No visible pneumothorax. DATA REPOSITORY: RADIATION DOSE DELIVERED:
[2023-10-30 14:25] VITALS: BP 134/92; PULSE 88; RESP 16; TEMP 36.2; O2SAT 96
[2023-10-30 14:37] LABS: Source Pleural
[2023-10-30 14:38] LABS: Clarity Clear; Mononuclear Cells 91 %; Nucleated Cells 540 uL (0); Polynuclear Cells 9 %
[2023-10-30 21:47] LABS: Glucose, Fluid 110 mg/dL (See Note)
[2023-11-01 09:44] LABS: Fluid Type Pleural; Protein,Total, BF 3.6 g/dL
[2023-11-01 12:22] LABS: Fluid Type Pleural; Lactate Dehydrogenase (LD), BF 65 U/L
== END 2023-10-30 15:50 | disposition home or self-care (01) ==
PROVIDERS: PCP Family Medicine; Visit Provider Student in an Organized Health Care Education/Training Program
PROC: (CPT 32554; principal; 2023-10-30 13:00)
DX: J90 Pleural effusion, not elsewhere classified (principal)
CPT/HCPCS: 32555; 00123; 71045; 81373; 83615; 83986; 84155; 84157; 87070; 87075; 87205; 88104; 88305; 89051

== ENCOUNTER → 2023-11-25 10:39 | Outpatient (BNVA) | payer MEDICARE, SELFPAY | PROVIDERS: PCP Family Medicine; Referring Provider Family Medicine; Visit Provider Physician Assistant Surgical | DX: J44.9 Chronic obstructive pulmonary disease, unspecified (principal); C34.90 Malignant neoplasm of unspecified part of unspecified bronchus or lung; J98.11 Atelectasis; J90 Pleural effusion, not elsewhere classified | CPT/HCPCS: 76604; 99214 ==

== ENCOUNTER 2023-12-03 12:01 | Day surgery (SDC) | payer MEDICARE, SELFPAY ==
[2023-12-03 12:12] VITALS: BP 117/77; PULSE 94; RESP 16; TEMP 36; O2SAT 97
--- NOTE | 2023-12-03 13:22 | PAPNONF_PTH ---
PATIENT: Gregg Bella LOC: [facility] U#:[id number] AGE/SX: 78/M ROOM: RE12/03/[address]: Margoth Balderas MD : 1945 BED: DIS: 12/03/2023 SPEC #: [id number] RECD: 12/03/23 17:41 STATUS: JEREMI REQ #: [id number] ELISE: 12/03/23 13:[address]: Margoth Balderas DEPT: [facility] Cytology RECD BY: Ayleen Schmidt ENTERED: 12/03/23 17:41 SP TYPE: RODRÍGUEZ MAK DR: Arun Justin Tissues: 1 - BODY FLUID CYTO(NOT S/U/N/EM)[facility] 2 - FLOW CYTOMETRY NODE/TISSUE Procedures: BODY FLUID CYTO(NOT SPU/UR/NIP/ENDOM)[facility] FLOW CYTOMETRY LYMPHOMA PNL CYTOLOGY CELL BLOCK Comments: [id number] (FLOW CYTOMETRY - [id number]) (REFRIGERATED) (TV = 975 ml, SENT FRESH)
[2023-12-03 13:49] VITALS: BP 124/79; PULSE 74; RESP 18; TEMP 36.4; O2SAT 97
--- NOTE | 2023-12-03 14:05 | ROE_ITS ---
Date of service: 12/03/23 Time of Service: 13:15 Operative Note Operative Note Procedure Description: Thoracentesis The patient gave written informed consent for the procedure after risks and benefits were explained to him. Patient was brought to the procedure room where his vital signs were taken and were all within normal limits. A complete and OR compliant time out was performed indicating correct patient, site and procedure. Patient was positioned sitting over the side of the bed, leaning forward on a table. I completed an ultrasound of the right lung and found a moderately sized, simple pleural effusion. A good pocket was found and the site was marked. The area was cleaned and draped in normal sterile fashion. The site was anesthetized with 5cc or lidocaine effectively. The catheter was inserted (noting the lung was approximately 4cm from skin) without complication. Pleural fluid was withdrawn that was yellow and transparent in appearance. 50cc of fluid was collected in a syringe and an additional 1.1L was collected for cyto pathology into appropriate bottles. Once the drainage began to slow, the catheter was removed while patient was humming. Pulse ox after the procedure was 98%. I did another ultrasound exam of the lung and found good lung slide both at the site of the thoracentesis and anteriorly. The case was terminated and the patient was brought back to [facility] in stable condition. Post procedure chest x-ray is pending pending. Specimens collected: 1.1L of pleural fluid of the right lung Tests ordered: Cell diff, bacterial culture, fungal culture, AFB culture, glucose, ldh, protein, pH, cytopathology Margoth Balderas MD Pulmonary & Critical Care
--- NOTE | 2023-12-03 14:13 | DI.RAD_ITS ---
Exam(s) XR PORTABLE CHEST AP EXAM: XR PORTABLE CHEST AP CLINICAL HISTORY: s/p right thoracentesis TECHNIQUE: 2D digital imaging was performed of the chest. One image was obtained. An AP view was ob tained. COMPARISON: CT CT CHEST/ABD/PEL W from 10/14/2023 CR XR PORTABLE CHEST AP from 10/30/2023 FINDINGS: MEDIASTINUM: Normal. HEART: Normal. PULMONARY VASCULATURE: Normal. LUNGS: There is again seen volume loss in the right hemithorax with a shift of the mediastinum to the right. This has a similar appearance. PLEURAL SPACE: There is again seen an opacity in the upper and lateral aspect of the right hemithorax which in part corresponds to loculated fluid as seen on the CT scan from 10/14/2023. No left pleural effusion or left pneumothorax. There is an increased lucency seen to the right of the aortic notch in the right hemithorax. This may represent a pneumothorax. This was not apparent on the prior exam ination. A noncontrast CT scan may be can obtained for further evaluation. BONE:Within normal limits for the patient's age. OTHER FINDINGS:Normal. IMPRESSION: There is a new area of lucency to the right of the mediastinum in the right superior hemithorax. Thi s may represent recently opacified lung however pneumothorax should be considered. A noncontrast CT scan may be obtained for further evaluation. DATA REPOSITORY: RADIATION DOSE DELIVERED:
[2023-12-03 14:28] LABS: Source: Pleural
[2023-12-03 14:30] LABS: Clarity Clear; Nucleated Cells 674 uL (0); Source Pleural
[2023-12-03 14:39] LABS: Mononuclear Cells 95 %; Polynuclear Cells 5 %
[2023-12-03 15:35] VITALS: BP 124/81; PULSE 77; RESP 17; O2SAT 97
--- NOTE | 2023-12-03 15:35 | DI.CT_ITS ---
Exam(s) CT CHEST WO EXAM: CT CHEST WO CLINICAL HISTORY: concern for possible PNX on CXR TECHNIQUE: Imaging Protocol: Axial computed tomography images with coronal and sagittal reformatted images were created and reviewed CONTRAST MATERIAL: Intravenous: Omnipaque 350 Contrast volume:structured data ml. COMPARISON: CT CT CHEST/ABD/PEL W from 10/14/2023 CR XR PORTABLE CHEST AP from 10/30/2023 CR XR PORTABLE CHEST AP from 12/03/2023 FINDINGS: Pulmonary parenchyma: No consolidation. No dominant measurable mass. Tracheobronchial tree: No bronchiectasis or mucous plugging. Mediastinum and Martina: No dominant adenopathy or fluid collection. Pleura: Small effusion seen posteriorly at the right lung base. This has decreased from prior exam. Stable loculated fluid in the right upper lobe and adjacent right upper lobe atelectasis. Stable le ft to right midline shift. No pneumothorax. Heart: The heart is not dilated. No coronary artery calcifications are seen. Aorta: Thoracic aorta non-dilated. Mild atherosclerotic changes. Upper abdomen: No acute findings.. Bones: Degenerative changes in the spine. Soft tissues: Unremarkable. IMPRESSION: Stable appearance of loculated right upper lobe fluid collection and adjacent complete atelectasis of the right upper as well as as portion of the right middle lobe. No evidence pneumothorax. Decreased size of right pleural effusion. RADIATION DOSE DELIVERED: 490.83mGy.cm Total DLP DATA REPOSITORY: All CT scans at this facility are submitted to the National Radiology Data Registry (NRDR) Dose Index Registry (DIR) with the [employer] (ACR). RADIATION OPTIMIZATION: All CT scans at this facility use at least one of these dose optimization te chniques: automated exposure control; mA and/or kV adjustment per patient size (includes targeted exa ms where dose is matched to clinical indication); or iterative reconstruction.
[2023-12-05 12:53] LABS: Fluid Type Pleural; Lactate Dehydrogenase (LD), BF 59 U/L
[2023-12-05 12:55] LABS: Fluid Type Pleural; Protein,Total, BF 3.6 g/dL
== END 2023-12-03 16:10 | disposition home or self-care (01) ==
PROVIDERS: PCP Family Medicine; Visit Provider Student in an Organized Health Care Education/Training Program
PROC: (CPT 32554; principal; 2023-12-03 13:00)
DX: J90 Pleural effusion, not elsewhere classified (principal)
CPT/HCPCS: 49083; 00123; 71250; 82042; 71045; 83615; 83986; 84155; 84157; 87070; 87075; 87205; 88104; 88184; 88185; 88305; 89051

== ENCOUNTER → 2023-12-24 12:19 | Outpatient (BNVA) | payer MEDICARE, SELFPAY | PROVIDERS: PCP Family Medicine; Referring Provider Family Medicine; Visit Provider Physician Assistant Surgical | DX: J44.9 Chronic obstructive pulmonary disease, unspecified (principal); J98.11 Atelectasis; C34.90 Malignant neoplasm of unspecified part of unspecified bronchus or lung | CPT/HCPCS: 76604 ==

== ENCOUNTER → 2024-01-19 10:36 | Outpatient (BNVA) | payer MEDICARE, SELFPAY | PROVIDERS: PCP Family Medicine; Referring Provider Family Medicine; Visit Provider Student in an Organized Health Care Education/Training Program | DX: J44.9 Chronic obstructive pulmonary disease, unspecified (principal); J90 Pleural effusion, not elsewhere classified; C34.90 Malignant neoplasm of unspecified part of unspecified bronchus or lung; J98.11 Atelectasis | CPT/HCPCS: 76604; 99214 ==

== ENCOUNTER → 2024-02-23 09:42 | Outpatient (BNVA) | payer MEDICARE, SELFPAY | PROVIDERS: PCP Family Medicine; Referring Provider Student in an Organized Health Care Education/Training Program; Visit Provider Surgery | DX: J90 Pleural effusion, not elsewhere classified (principal); C34.90 Malignant neoplasm of unspecified part of unspecified bronchus or lung; J44.9 Chronic obstructive pulmonary disease, unspecified | CPT/HCPCS: 99215 ==

== ENCOUNTER → 2024-02-26 00:24 | Outpatient (CLI) | payer MEDICARE, SELFPAY ==
--- NOTE | 2024-02-26 | DI.CT_ITS ---
Exam(s) CT CHEST W EXAM: CT CHEST W CLINICAL HISTORY: NSCLC, C34.11; MALIGNANT NEOPLASM, SOFT TISSUES OF ABD, C79.89 TECHNIQUE: Imaging Protocol: Axial computed tomography images with coronal and sagittal reformatted images were created and reviewed CONTRAST MATERIAL: Intravenous: Omnipaque 350 Contrast volume:structured data ml. COMPARISON: CR XR PORTABLE CHEST AP from 12/03/[address] CHEST WO from 12/03/2023 FINDINGS: Pulmonary parenchyma: Stable appearance of right upper lobe consolidation/mass and volume loss. Stab le midline shift. Tracheobronchial tree: No bronchiectasis or mucous plugging. Stable appearance of right upper lobe bronchial occlusion. Mediastinum and Martina: No dominant adenopathy or fluid collection. Pleura: Increased size right pleural effusion which was tiny near the base exam and now is large in s ize. No pneumothorax. Heart: The heart is not dilated. Coronary artery calcifications are seen. No pericardial effusion. Aorta: Thoracic aorta non-dilated. Mild atherosclerotic changes. Pulmonary arteries: No gross evidence of emboli. Upper abdomen: No acute findings. Status post cholecystectomy. Bones: Degenerative changes in the spine. Soft tissues: Unremarkable. IMPRESSION: Significant interval increase in size of right pleural effusion, now large. Stable appearance of con solidation and volume loss in the right upper lobe. RADIATION DOSE DELIVERED: 570.51mGy.cm Total DLP DATA REPOSITORY: All CT scans at this facility are submitted to the National Radiology Data Registry (NRDR) Dose Index Registry (DIR) with the [employer] (ACR). RADIATION OPTIMIZATION: All CT scans at this facility use at least one of these dose optimization te chniques: automated exposure control; mA and/or kV adjustment per patient size (includes targeted exa ms where dose is matched to clinical indication); or iterative reconstruction.
[2024-02-26 12:18] LABS: Abs Immature Grans 0.03 10^3/uL (0.0-0.06); Absolute Basophil Count 0.05 10^3/uL (0.0-0.2); Absolute Eosinophil Count 0.18 10^3/uL (0.0-0.7); Absolute Lymphocyte Count 1.26 10^3/uL (1.2-3.4); Absolute Monocyte Count 0.86 10^3/uL (0.1-0.8); Basophils % 0.5 %; Eosinophils % 1.9 %; HCT 37.2 % (40.0-50.0); HGB 12.5 g/dL (13.5-17.5); Immature Grans % 0.3 %; Lymphocytes % 13.4 %; MCH 30.2 pg (27.0-33.0); MCHC 33.6 % (32.0-36.0); MCV 90 fL (80-95); MPV 10.8 fL (8.0-11.0); Monocytes % 9.2 %; Neutrophils % 74.7 %; Platelet Count 163 10^3/uL (130-400); RBC 4.14 10^6/uL (4.36-5.78); RDW 13.3 % (11.8-14.1); RDW-SD 44.2 fL; WBC 9.38 10^3/uL (4.4-10.8)
[2024-02-26 12:36] LABS: ALT 17 U/L (16-63); AST 15 U/L (15-37); Albumin 3.5 g/dL (3.4-5.0); Alkaline Phosphatase 81 U/L (46-116); Anion Gap 4.5 mmol/L (3-11); BUN 18 mg/dL (7-18); Bilirubin, Total 0.46 mg/dL (0.2-1.0); CO2 30.5 mmol/L (21.0-32.0); CREATININE 1.5 mg/dL (0.70-1.30); Calcium 9.2 mg/dL (8.5-10.1); Chloride 105 mmol/L (98-107); Estimated GFR 47.36 (mL/min/1.73m2); Glucose 114 mg/dL (74-106); Potassium 4.4 mmol/L (3.5-5.1); Sodium 140 mmol/L (136-145)
[2024-02-26] MEDS: Normal Saline - Diluent 50 ML VIAL IJ (13:16)
[2024-02-26] MEDS: Omnipaque 350 MG/ML 500 ML BTL-Imaging package IJ (13:16)
== END ==
PROVIDERS: PCP Family Medicine; Visit Provider Nurse Practitioner Family
DX: C34.11 Malignant neoplasm of upper lobe, right bronchus or lung (principal); C79.89 Secondary malignant neoplasm of other specified sites; J91.8 Pleural effusion in other conditions classified elsewhere
CPT/HCPCS: 80053; 71260; 85025

== ENCOUNTER 2024-06-03 00:30 | Outpatient (CLI) | payer MEDICARE, SELFPAY ==
--- NOTE | 2024-06-03 | DI.CT_ITS ---
Exam(s) CT CHEST/ABD/PEL W EXAM: CT CHEST/ABD/PEL W CLINICAL HISTORY: STAGE IV NSCLC, PLEUREX IN PLACE RT LUNG, RESECTED MESENTERIC MASS, C34.11. TECHNIQUE: Imaging Protocol: Axial computed tomography images with coronal and sagittal reformatted images were created and reviewed CONTRAST MATERIAL: Intravenous: Omnipaque 350 Contrast volume:100 ml Oral: None COMPARISON: CT CT CHEST/ABD/PEL W from 10/14/[address] CHEST W from 02/26/2024 FINDINGS: CHEST: LUNGS: Again noted is decreased right hemithoracic volume related prior surgery. There is now a righ t percutaneous drainage catheter along the dorsal pleura of the right chest. The previously present right pleural effusion has mostly resolved although there is still some right pleural fluid evident b elow the level of the drainage catheter in the inferior sulcus of the pleural space. There has been re-expansion of the basal segments of the right lower lobe. The right parahilar-upper lobe mass dens ity appears somewhat similar to previous but with slight improved aeration of the remaining right upp er lobe. The left lung extending across the midline and compensatory hyperinflation fashion. There is again noted small area of infiltrate in the anterior basal segment of the left lower lobe measurin g approximately 1.3 x 1.0 cm, similar to previous. Also some unchanged para-suprahilar left mild inf iltrate. No pleural fluid on the left side. Left mainstem bronchus appears unremarkable. MEDIASTINUM: Difficult to assess for adenopathy in the right hilum as the lung density extends to thi s level. There is some density again noted in the subcarinal region anterior to the esophagus probab ly small lymph node. The left hilum appears unremarkable. Partially visualized thyroid unremarkable . CARDIAC: Heart size is normal. There is no pericardial effusion.Caliber of the thoracic aorta is wit hin normal limits. OSSEOUS: No significant osseous lesions.No rib fractures nor rib erosion.. ABDOMEN: There is no ascites. LIVER: There are no focal hepatic lesions nor dilatation of intrahepatic ducts. GALLBLADDER/BILIARY: The gallbladder is again noted be surgically absent. CBD is not dilated. PANCREAS: No evidence of pancreatic mass nor dilatation of the pancreatic duct. SPLEEN: Spleen is not enlarged. There are no intrasplenic lesions. Splenic and portal veins are angela nt. ADRENALS: There are no significant adrenal masses. KIDNEYS: No calculi nor hydronephrosis. No solid renal masses. No cysts evident. ABDOMINAL AORTA: Abdominal aorta is not enlarged. LYMPH NODES: There is no retroperitoneal nor paraaortic adenopathy. ABDOMINAL WALL: No evidence of significant anterior abdominal wall nor inguinal hernia. GI: There is no evidence of bowel obstruction.Moderate amount of fecal material in the colon noted. No evidence of colitis pattern. PELVIS: LYMPH NODES: There is no intrapelvic nor inguinal adenopathy. GI: No evidence of appendicitis.No evidence of sigmoid diverticulitis. URINARY BLADDER: No calculi nor masses evident REPRODUCTIVE: Prostate size normal. Seminal vesicles unremarkable. OSSEOUS: No significant osseous lesions. No fractures. Partial ankylosis of the sacroiliac joints noted. IMPRESSION: 1. Compared to 10/14/2023 there has been interval placement of a right percutaneous pleural drainage catheter and the size of the right pleural effusion has significantly decreased. There is, however, a small amount of remaining pleural effusion which is below the level of the catheter position.. 2. The right upper lobe mass findings exhibit minimal change from 10/14/2023. 3. Small area of infiltrate in the left lower lobe is again noted as described above. No pleural eff usion on the left side and no hilar adenopathy on the left side. 4. No new significant findings in the abdomen and pelvis. No ascites. 5. Gallbladder is again noted be surgically absent RADIATION DOSE DELIVERED: 363.46mGy.cm Total DLP DATA REPOSITORY: All CT scans at this facility are submitted to the National Radiology Data Registry (NRDR) Dose Index Registry (DIR) with the [employer] (ACR). RADIATION OPTIMIZATION: All CT scans at this facility use at least one of these dose optimization te chniques: automated exposure control; mA and/or kV adjustment per patient size (includes targeted exa ms where dose is matched to clinical indication); or iterative reconstruction.
[2024-06-03 13:46] LABS: Abs Immature Grans 0.02 10^3/uL (0.0-0.06); Absolute Basophil Count 0.05 10^3/uL (0.0-0.2); Absolute Eosinophil Count 0.21 10^3/uL (0.0-0.7); Absolute Lymphocyte Count 0.95 10^3/uL (1.2-3.4); Absolute Neutrophil Count 5.39 10^3/uL (1.2-6.7); Basophils % 0.7 %; Eosinophils % 2.8 %; HCT 36.6 % (40.0-50.0); HGB 12.2 g/dL (13.5-17.5); Immature Grans % 0.3 %; Lymphocytes % 12.8 %; MCH 30.4 pg (27.0-33.0); MCHC 33.3 % (32.0-36.0); MCV 91 fL (80-95); MPV 10.5 fL (8.0-11.0); Monocytes % 10.8 %; Neutrophils % 72.6 %; Platelet Count 162 10^3/uL (130-400); RBC 4.01 10^6/uL (4.36-5.78); RDW 13.4 % (11.8-14.1); RDW-SD 45.1 fL; WBC 7.42 10^3/uL (4.4-10.8)
[2024-06-03 14:08] LABS: ALT 31 U/L (16-63); AST 19 U/L (15-37); Alkaline Phosphatase 83 U/L (46-116); Anion Gap 6.1 mmol/L (3-11); BUN 19 mg/dL (7-18); Bilirubin, Total 0.39 mg/dL (0.2-1.0); CO2 28.9 mmol/L (21.0-32.0); CREATININE 1.4 mg/dL (0.70-1.30); Calcium 8.8 mg/dL (8.5-10.1); Chloride 106 mmol/L (98-107); Estimated GFR 51.45 (mL/min/1.73m2); Glucose 121 mg/dL (74-106); Magnesium 1.9 mg/dL (1.8-2.4); Potassium 3.9 mmol/L (3.5-5.1); Sodium 141 mmol/L (136-145); Total Protein 6.5 g/dL (6.4-8.2)
[2024-06-03] MEDS: Normal Saline - Diluent 50 ML VIAL IJ (14:23)
[2024-06-03] MEDS: Omnipaque 350 MG/ML 100 ML BTL IJ (14:24)
== END 2024-06-03 00:50 ==
LOC: DI 00:31
PROVIDERS: PCP Family Medicine; Visit Provider Nurse Practitioner Family
DX: C34.11 Malignant neoplasm of upper lobe, right bronchus or lung (principal)
CPT/HCPCS: 74177; 80053; 71260; 83735; 85025; J3490

== ENCOUNTER → 2024-06-22 13:37 | Outpatient (BNVA) | payer MEDICARE, SELFPAY | PROVIDERS: PCP Family Medicine; Referring Provider Family Medicine; Visit Provider Physician Assistant Surgical | DX: J44.9 Chronic obstructive pulmonary disease, unspecified (principal); J98.11 Atelectasis; C34.90 Malignant neoplasm of unspecified part of unspecified bronchus or lung; J90 Pleural effusion, not elsewhere classified | CPT/HCPCS: 76604; 99214 ==

== ENCOUNTER 2024-06-22 14:56 | Outpatient (CLI) | payer MEDICARE, SELFPAY ==
--- NOTE | 2024-06-22 14:45 | DI.RAD_ITS ---
Exam(s) XR CHEST 2V PA LATERAL EXAM: XR CHEST 2V PA LATERAL CLINICAL HISTORY: fluid, pleural effusion, J90 TECHNIQUE: 2D digital imaging was performed of the chest. Two images were obtained. PA and lateral views were obtained. COMPARISON: CR XR PORTABLE CHEST AP from 12/03/[address] CHEST/ABD/PEL W from 06/03/2024 FINDINGS: MEDIASTINUM: Normal. HEART: Normal. PULMONARY VASCULATURE: Normal. LUNGS: No focal consolidating infiltrates are seen. There is compensatory hyperexpansion of the left lung. PLEURAL SPACE: There is again seen thickening of the pleural space in the right hemithorax consistent with the patient's known not fluid loculations. BONE:Within normal limits for the patient's age. OTHER FINDINGS:Normal. IMPRESSION: No significant change in appearance of the chest x-ray compared to the prior examination. DATA REPOSITORY: RADIATION DOSE DELIVERED:
== END 2024-06-22 15:16 ==
LOC: DI 14:56
PROVIDERS: PCP Family Medicine; Visit Provider Physician Assistant Surgical
DX: J90 Pleural effusion, not elsewhere classified (principal)
CPT/HCPCS: 71046

== ENCOUNTER → 2024-06-29 09:48 | Outpatient (BNVA) | payer MEDICARE, SELFPAY | PROVIDERS: PCP Family Medicine; Referring Provider Family Medicine; Visit Provider Physician Assistant Surgical | DX: J44.9 Chronic obstructive pulmonary disease, unspecified (principal); J98.11 Atelectasis; C34.90 Malignant neoplasm of unspecified part of unspecified bronchus or lung; J90 Pleural effusion, not elsewhere classified | CPT/HCPCS: 76604; 99214 ==

== ENCOUNTER → 2025-08-03 12:25 | Outpatient (BNVA) | payer MEDICARE, SELFPAY | PROVIDERS: PCP Family Medicine; Referring Provider Family Medicine; Visit Provider Internal Medicine Pulmonary Disease | DX: J44.9 Chronic obstructive pulmonary disease, unspecified (principal); C34.91 Malignant neoplasm of unspecified part of right bronchus or lung; J90 Pleural effusion, not elsewhere classified | CPT/HCPCS: 99214; 94618; 76604 ==